=== PATIENT | female | born 1950 | race Caucasian/White ===

== ENCOUNTER → 2021-03-05 14:13 | Outpatient (CLI) | payer MEDICARE, SELFPAY | PROVIDERS: Visit Provider Family Medicine | DX: N39.0 Urinary tract infection, site not specified (principal) | CPT/HCPCS: 87086 ==

== ENCOUNTER 2021-03-17 08:39 | Outpatient (RCR) | payer MEDICARE, SELFPAY ==
--- NOTE | 2021-03-17 09:23 | HMH.PTOPEV ---
PT Outpatient Evaluation Rehab PT Outpatient Evaluation Start: 03/17/21 09:06 Freq: Status: Active Protocol: Document 03/17/21 09:07 SHANNAN (Rec: 03/17/21 09:23 SHANNAN [id number]) Electronically Signed By Ramiro Morales, PT 03/17/21 09:07 Outpatient Therapy Subjective History Subjective History Pt presents s/p CVA ~3 years ago, left sided weakness. Pt reports major complaint is left knee 'giving out', genralized LLE weakness, balance issues, and decreased endurance. Pt reports no pain related problems this am, but expresses concern with left hand tightness-will add OT to interdisciplinary POC to address LUE issues. Chief Complaint Stiff,Gives out/Unstable, Weakness Symptoms Relieved By Rest/Positioning Symptoms Aggravated By Standing,Physical Activity, Walking Prior Functional Limitations Housework,Standing,Walking, Stairs,Balance Current Functional Limitations Housework,Standing,Walking, Stairs,Balance Hip/Knee Eval MMT left Hip Flexion Strength Grade 4- Good- Hip Abduction Strength Grade 4- Good- Hip Adduction Strength Grade 4- Good- Hip Extension Strength Grade 4- Good- Hip External Rotation Strength Grade 3+ Fair+ Hip Internal Rotation Strength Grade 3+ Fair+ Knee Extension Strength Grade 4- Good- Knee Flexion Strength Grade 3+ Fair+ Ankle/Foot Eval MMT Ankle Dorsiflexion Strength Grade 4 Good Balance Eval Gait/Posture Asssessment General Gait Observation Ataxic Gait Assistive Devices Straight Cane Hip Observation in Gait Swing Circumducted,Externally Rotated Hip Observation in Gait Stance Externally Rotated Ankle/Foot Observation in Gait Swing Decreased Foot Clearance Ankle/Foot Observation in Gait Stance Forefoot Abducted Hip Posture Standing Position (L) Externally Rotated,(L) Abducted Body Alignment Posture Leaning Timed Up and Go Test 3. Is the Timed Up and Go Test result < yes 12 seconds? Tinetti Sitting Balance Sitting Balance Steady, safe Arising from Chair Ability to Arise Able, uses arms to help Attempts to Arise Arises on 1st attempt Standing Balance Immediate Standing Balance Steady with support Standing Balance Unsteady Nudged Response Begins to fall Standing wit
== END 2021-03-17 08:45 | disposition home or self-care (01) ==
LOC: PT 08:39
PROVIDERS: PCP Family Medicine; Visit Provider Family Medicine
DX: I63.9 Cerebral infarction, unspecified (principal); R29.898 Other symptoms and signs involving the musculoskeletal system
CPT/HCPCS: 97163

== ENCOUNTER → 2021-04-27 16:00 | Outpatient (CLI) | payer MEDICARE, SELFPAY ==
[2021-04-27 14:36] LABS: Alanine Aminotransferase 21 U/L (12-78); Albumin Level 4.8 g/dl (3.5-5.0); Albumin/Globulin Ratio 1.8 (1.1-1.8); Alkaline Phosphatase 89 U/L (38-126); Anion Gap 15.3 mEq/L (5-15); Aspartate Amino Transferase 23 U/L (14-36); Bilirubin,Total 0.8 mg/dl (0.2-1.3); Blood Urea Nitrogen 14 mg/dl (7-17); Calcium 9.7 mg/dl (8.4-10.2); Carbon Dioxide 25 mmol/L (22.0-30.0); Chloride 102 mmol/L (98-107); Chol/HDL Ratio 3.2 (1-3.5); Cholesterol 166 mg/dl (140-200); Estimated Glomerular Filt Rate 123 ml/min (>60); GFR (African American) 148 ML/MIN (>60); Globulin 2.7 g/dL (1.3-3.2); Glucose 242 mg/dl (74-100); HDL Cholesterol 52 mg/dl (40-60); Potassium 4.3 mmoL/L (3.5-5.1); Sodium 138 mmol/L (136-145); Total Protein,Serum 7.5 g/dl (6.3-8.2); Triglycerides 125 mg/dl (30-150); VLDL Cholesterol 25 mg/dL (0-40)
[2021-04-27 14:47] LABS: Direct LDL Cholesterol 94.47 mg/dL (100-129)
[2021-04-27 18:33] LABS: Hemoglobin A1C 10.4 % (4.0-6.0)
== END ==
PROVIDERS: Visit Provider Family Medicine
DX: I10 Essential (primary) hypertension (principal); E11.9 Type 2 diabetes mellitus without complications; Z79.84 Long term (current) use of oral hypoglycemic drugs
CPT/HCPCS: 80053; 80061; 83036

== ENCOUNTER → 2021-07-27 11:00 | Outpatient (CLI) | payer MEDICARE, SELFPAY ==
[2021-07-27 17:54] LABS: Hemoglobin A1C 7.4 % (4.0-6.0)
== END ==
PROVIDERS: PCP Family Medicine; Visit Provider Family Medicine
DX: E11.9 Type 2 diabetes mellitus without complications (principal); Z79.4 Long term (current) use of insulin
CPT/HCPCS: 83036

== ENCOUNTER → 2021-10-16 15:16 | Outpatient (CLI) | payer MEDICARE, SELFPAY ==
[2021-10-16 13:58] LABS: Hemoglobin A1C 6.7 % (4.0-6.0)
== END ==
PROVIDERS: PCP Family Medicine; Visit Provider Family Medicine
DX: E11.9 Type 2 diabetes mellitus without complications (principal); Z79.4 Long term (current) use of insulin
CPT/HCPCS: 83036

== ENCOUNTER 2022-05-26 13:00 | Outpatient (RCR) | payer MEDICARE, SELFPAY ==
--- NOTE | 2022-04-20 16:34 | HMH.OTOPEV ---
OT Inpatient Evaluation Rehab OT Outpatient Eval Start: 04/20/22 16:22 Freq: Status: Active Protocol: Document 04/20/22 16:22 RITABRENNA (Rec: 04/20/22 16:34 RITABRENNA [id number]) E-signed By Hanny Quesada, OT Outpatient Therapy Subjective History Subjective History 71 year old female referred to skilled OP OT services for left hand weakness and dupuytren contracture. Patient verablize having a CVA to the L hand ~3-4 years ago. L hand contracture ~1 month ago started showing s/s. Patient stated to have difficulty with tying shoes, grooming and washing dishes due to L hand contracture. AROM is WFL. Patient is able to actively close fist, however during extension of the digits, patient will have a catch in the digits then able to continue to extend digits. No pain noted. Numbness/tingling to the L UE since CVA. Patient does not have a resting hand splint, however would benefit from one. OT will look into patient to recieve a resting hand splint at night to prevent contracture from worsening. STGs: Patient to be able to tolerate appropriate ortho splint at night up to 3 hours without s/ s of redness or skin irritation in order to prevent contractures from worsening. LTGs: Patient to be able to tolerate appropriate ortho splint at night up to 5 hours without s/ s of redness or skin irritation in order to prevent contractures from worsening. Chief Complaint Weakness,Decreased Manager Msw Strength Symptom Type Numbness,Tingling Symptoms Relieved By Nothing Symptoms Aggravated By Physical Activity Prior Functional Limitations None Current Functional L
--- NOTE | 2022-05-18 16:24 | HMH.RHREAS ---
Rehab Reassessment Rehab OP Re-assessment Start: 05/18/22 16:14 Freq: Status: Active Protocol: Document 05/18/22 16:16 ROMÁN (Rec: 05/18/22 16:24 RITABRENNA [id number]) E-signed By Hanny Quesada OT Rehab Re-assessment Subjective Subjective When will my brace be in? Objective Objective Notes 71 year old female referred to skilled OP OT services for left hand weakness and dupuytren contracture. Patient verablize having a CVA to the L hand ~3-4 years ago. L hand contracture ~2 months ago started showing s/s. Patient stated to have difficulty with tying shoes, grooming and washing dishes due to L hand contracture. AROM is WFL. Patient is able to actively close fist, however during extension of the digits, patient will have a catch in the digits then able to continue to extend digits. No pain noted. Numbness/tingling to the L UE since CVA. Patient does not have a resting hand splint, however would benefit from one. OT has been in contact with the company that provides prefab resting hand splints for lobsterman settings . Patient was measured for left small resting hand splint and signed papers this date. Waiting for resting hand splint to arrive to facility. Assessment Progress Assessment Progressing as Expected Assessment Notes Patient has participated in skilled OP OT services of L UE hand of PROM, AAROM, AROM, electronic page makeup system operator strengthening and a variety of modalites to improve strengthening of UE. OT placed order for patient to recieve a resting hand splint ; small. Plan to arrive to facility in the next week or so. L electronic page makeup system operator strength: 35# R gr
== END 2022-05-26 13:05 | disposition home or self-care (01) ==
LOC: OT 13:00
PROVIDERS: PCP Family Medicine; Visit Provider Family Medicine
DX: I63.9 Cerebral infarction, unspecified (principal); R29.898 Other symptoms and signs involving the musculoskeletal system; M72.0 Palmar fascial fibromatosis [Dupuytren]; M25.642 Stiffness of left hand, not elsewhere classified; R53.1 Weakness
CPT/HCPCS: 97010; 97014; 97110; 97140; 97164; 97165; 97763; G0283

== ENCOUNTER → 2022-06-17 13:13 | Outpatient (CLI) | payer MEDICARE, SELFPAY ==
[2022-06-17 13:29] LABS: Basophils # 0.1 K/mm3 (0-0.2); Basophils % 0.7 % (0.1-2.0); Eosinophils # 0.1 K/mm3 (0.0-0.4); Eosinophils % 1.1 % (0.1-12.0); Hematocrit 46.9 % (37.0-47.0); Hemoglobin 14.7 g/dL (12.2-16.2); Lymphocytes # 2.8 K/mm3 (0.7-4.5); Mean Corpuscular HGB Conc 31.4 g/dL (31.8-35.4); Mean Corpuscular Hemoglobin 28.3 pg (27.0-31.2); Mean Corpuscular Volume 90.1 fl (81-99); Mean Platelet Volume 7.7 fl (7.4-10.4); Monocytes # 0.5 K/mm3 (0.1-1.0); Monocytes % 5.8 % (1.7-9.3); Neutrophils # 4.6 K/mm3 (1.8-7.8); Neutrophils % 57.4 % (37.0-80.0); Platelet Count 335 K/mm3 (142-424); Red Blood Count 5.21 M/mm3 (4.20-5.40); Red Cell Distribution Width 13.8 % (11.5-17.5); White Blood Count 7.9 K/mm3 (4.8-10.8)
[2022-06-17 13:40] LABS: Chloride 104 mmol/L (98-107); Potassium 4.5 mmoL/L (3.5-5.1); Sodium 137 mmol/L (136-145)
[2022-06-17 13:43] LABS: Alanine Aminotransferase 20 U/L (12-78); Albumin Level 4.8 g/dl (3.5-5.0); Albumin/Globulin Ratio 1.7 (1.1-1.8); Alkaline Phosphatase 99 U/L (38-126); Anion Gap 13.5 mEq/L (5-15); Aspartate Amino Transferase 28 U/L (14-36); Blood Urea Nitrogen 12 mg/dl (7-17); Carbon Dioxide 24 mmol/L (22.0-30.0); Cholesterol 148 mg/dl (140-200); Estimated Glomerular Filt Rate 99 ml/min (>60); GFR (African American) 120 ML/MIN (>60); Globulin 2.8 g/dL (1.3-3.2); Total Protein,Serum 7.6 g/dl (6.3-8.2); Triglycerides 262 mg/dl (30-150); VLDL Cholesterol 52 mg/dL (0-40)
[2022-06-17 13:44] LABS: Calcium 9.6 mg/dl (8.4-10.2); Chol/HDL Ratio 3.1 (1-3.5); Glucose 151 mg/dl (74-100); HDL Cholesterol 47 mg/dl (40-60)
[2022-06-17 13:55] LABS: Direct LDL Cholesterol 69.48 mg/dL (100-129)
[2022-06-17 14:15] LABS: Thyroid Stimulating Hormone 1.63 uIU/mL (0.465-4.68)
[2022-06-17 20:02] LABS: Hemoglobin A1C 11.2 % (4.0-6.0)
== END ==
PROVIDERS: PCP Family Medicine; Visit Provider Family Medicine
DX: E11.9 Type 2 diabetes mellitus without complications (principal); Z79.4 Long term (current) use of insulin; Z79.899 Other long term (current) drug therapy
CPT/HCPCS: 80053; 80061; 83036; 84443; 85025

== ENCOUNTER 2022-06-27 10:39 | Emergency (ER) | payer MEDICARE, SELFPAY ==
[2022-06-27] VITALS (7 sets, daily range): BP systolic 140–156; BP diastolic 58–78; PULSE 70–105; RESP 16–17; TEMP 36.7–36.8; O2SAT 96–99; BMI 27.1
[2022-06-27 10:56] LABS: Microscopic, Urine URINE MICROSCOPIC (MICROSCOPIC)
[2022-06-27 11:00] LABS: Appearance,Urine CLEAR (Clear); Bilirubin,Urine Negative (Negative); Blood, Urine 2+ (Negative); Color,Urine YELLOW (Yellow); Glucose,Urine (UA) Negative (Negative); Ketones,Urine Negative (Negative); Leukocyte Esterase,Urine 1+ (Negative); Nitrate,Urine Negative (Negative); Protein,Urine 2+ (Negative); Specific Gravity, Urine 1.025 (1.005-1.030)
--- NOTE | 2022-06-27 11:04 | PC.NURSE ---
Kandi.Quinteros rounded on patient
--- NOTE | 2022-06-27 11:20 | CT_ITS ---
PROCEDURE INFORMATION: Exam: CT Abdomen And Pelvis With Contrast Exam date and time: 06/27/2022 12:01 PM Age: 71 years old Clinical indication: Abdominal pain; Tenderness; Right lower quadrant (rlq); Additional info: Rlq pain; Concern for nephrolithiasis TECHNIQUE: Imaging protocol: Computed tomography of the abdomen and pelvis with contrast. Radiation optimization: All CT scans at this facility use at least one of these dose optimization techniques: automated exposure control; mA and/or kV adjustment per patient size (includes targeted exams where dose is matched to clinical indication); or iterative reconstruction. Contrast material: ISOVUE; Contrast volume: 75 ml; Contrast route: IV; REPORTING DATA: Count of CT and Cardiac NM exams in prior 12 months: This patient has received 0 known CTs and 0 known cardiac nuclear medicine studies in the 12 months prior to the current study. COMPARISON: No relevant prior studies available. FINDINGS: Lungs: Lung bases are unremarkable. Liver: No focal hepatic lesions. Gallbladder and bile ducts: There has been a cholecystectomy. No biliary ductal dilation. Pancreas: No peripancreatic fluid stranding. No main pancreatic ductal dilation. Spleen: Multiple splenic granulomas. No splenomegaly. Adrenal glands: The adrenal glands are normal. Kidneys and ureters: Nephrograms are symmetric. No evidence of nephrolithiasis. No solid lesions. There is urothelial hyperenhancement along the right collecting system. No wendy hydroureteronephrosis on either side. Stomach and bowel: No bowel wall thickening or distention. Pancolonic diverticulosis noted without acute inflammatory change. Appendix: A normal appendix is not well visualized. However, no evidence of inflammatory changes in the right lower quadrant to suggest acute appendicitis. Intraperitoneal space: There is no evidence of free intraperitoneal or pelvic fluid. Vasculature: The aorta demonstrates moderate atherosclerotic calcification. Scattered pelvic phleboliths noted Lymph nodes: No evidence of retroperitoneal or mesenteric lymphadenopathy. Urinary bladder: Urinary bladder is unremarkable. Reproductive: Status post hysterectomy. Bones/joints: No acute osseous abnormality. Multilevel degenerative changes of the included spine. Soft tissues: Unremarkable. IMPRESSION: There is urothelial hyperenhancement along the right collecting system. No wendy hydroureteronephrosis on either side. Findings can be attributed to ascending urinary tract infection (pyelitis) versus recent calculus passage
[2022-06-27 11:29] LABS: Basophils # 0.1 K/mm3 (0-0.2); Basophils % 0.6 % (0.1-2.0); Chloride 102 mmol/L (98-107); Eosinophils # 0.2 K/mm3 (0.0-0.4); Eosinophils % 1.7 % (0.1-12.0); Hematocrit 46.3 % (37.0-47.0); Lymphocytes % 33.9 % (10-50); Mean Corpuscular HGB Conc 32.5 g/dL (31.8-35.4); Mean Corpuscular Hemoglobin 28.8 pg (27.0-31.2); Mean Corpuscular Volume 88.9 fl (81-99); Mean Platelet Volume 7.5 fl (7.4-10.4); Monocytes # 0.7 K/mm3 (0.1-1.0); Monocytes % 6.1 % (1.7-9.3); Neutrophils # 6.9 K/mm3 (1.8-7.8); Neutrophils % 57.8 % (37.0-80.0); Platelet Count 371 K/mm3 (142-424); Potassium 3.9 mmoL/L (3.5-5.1); Red Blood Count 5.21 M/mm3 (4.20-5.40); Red Cell Distribution Width 13.5 % (11.5-17.5); Sodium 139 mmol/L (136-145); White Blood Count 11.9 K/mm3 (4.8-10.8)
[2022-06-27 11:32] LABS: Bacteria,Urine 2+ /lpf
[2022-06-27 11:32] LABS: Alanine Aminotransferase 21 U/L (12-78); Alkaline Phosphatase 102 U/L (38-126); Anion Gap 19.9 mEq/L (5-15); Aspartate Amino Transferase 27 U/L (14-36); Bilirubin,Total 0.9 mg/dl (0.2-1.3); Blood Urea Nitrogen 15 mg/dl (7-17); Calcium 9.1 mg/dl (8.4-10.2); Carbon Dioxide 21 mmol/L (22.0-30.0); Creatinine Clearance Estimated 55 mL/min (50-200); Estimated Glomerular Filt Rate 99 ml/min (>60); GFR (African American) 120 ML/MIN (>60); Glucose 267 mg/dl (74-100); Lipase 166 U/L (23-300)
--- NOTE | 2022-06-27 11:32 | PC.NURSE ---
Kandi.Quinteros rounded on patient
[2022-06-27 11:33] LABS: Albumin Level 4.5 g/dl (3.5-5.0); Albumin/Globulin Ratio 1.3 (1.1-1.8); Globulin 3.6 g/dL (1.3-3.2); Total Protein,Serum 8.1 g/dl (6.3-8.2)
--- NOTE | 2022-06-27 11:33 | PC.NURSE ---
cristian rounding on pt
[2022-06-27 11:38] LABS: C-Reactive Protein 32.7 mg/L (0-4)
--- NOTE | 2022-06-27 12:24 | PC.NURSE ---
rounded on pt no complaints @ this time , @ bs
[2022-06-27 12:31] LABS: Lactic Acid 2.1 mmol/L (0.7-2.1)
--- NOTE | 2022-06-27 13:42 | HMH.EDGENADL ---
Discharge Plan Disposition Patient Disposition: Home, Self-Care Prescriptions Prescriptions: New cefdinir 300 mg capsule 300 mg PO BID 7 Days Qty: 14 0RF No Action amlodipine-benazepril [Lotrel] 10-40 mg capsule 1 cap PO DAILY Qty: 90 3RF aspirin 81 mg tablet,delayed release (DR/EC) 81 mg PO DAILY Qty: 100 3RF atorvastatin 40 mg tablet 40 mg PO DAILY Qty: 90 3RF metformin 1,000 mg tablet 1,000 mg PO DAILY Qty: 90 3RF Antivert 50 mg tablet 50 mg PO BID PRN (Reason: dizziness) Qty: 60 3RF insulin glargine [Lantus Solostar U-100 Insulin] 100 unit/mL (3 mL) insulin pen 30 unit SQ HS Qty: 15 10RF Rx Instructions: please include pen needles #100 [id number] Referrals Follow up/Referrals: Robert Trujillo MD [Primary Care Provider] - See instructions Clinical Impressions Clinical Impression: Pyelonephritis Instructions Patient Instructions: DI for Kidney Infection Discharge ED Provider: Ramiro Frost General Adult HPI General Chief complaint: Abdominal Pain Stated complaint: Lower RT side abd pain Time Seen by Provider: 06/27/22 10:45 Mode of Arrival: Ambulatory Source of Information: Patient Limitations: No Limitations Description of Symptoms (Recalled from ER Triage Doc. by RN): c/o lower right abdomen pain that started yesterday, states the pain comes and goes with increased pain with standing. hx of appendectomy. Denies any n/v/d. STates that she had a regular bm for her and was soft. History of Present Illness HPI narrative: Patient is a 71-year-old female who presents with right-sided abdominal pain. She says that it started yesterday. She says that the pain has been seeming to come and go but is gotten progressively worse. She has had a history of appendectomy in the past. She denies any nausea, vomiting, diarrhea. She says that she continues to have bowel movements. She does not noted any hematuria or dysuria. Denies any back pain. No history of nephrolithiasis. Related Data Previous Rx's Medication Instructions Recorded meclizine 50 mg tablet (Antivert) 50 mg PO BID PRN dizziness #60 tabs 07/27/21 amlodipine 10 mg-benazepril 40 mg 1 cap PO DAILY #90 caps 01/31/23 capsule (Lotrel) aspirin 81 mg tablet,delayed 81 mg PO DAILY #100 tabs 04/13/22 release atorvastatin 40 mg tablet 40 mg PO DAILY #90 tabs 04/13/22 metformin 1,000 mg tablet 1,000 mg PO DAILY #90 tabs 04/13/22 insulin glargine 100 unit/mL (3 30 unit (0.3 mL) SQ HS #15 mL 06/21/22 mL) subcutaneous pen (Lantus Solostar U-100 Insulin) cefdinir 300 mg capsule 300 mg PO BID 7 days #14 caps 06/27/22 Allergies Allergy/AdvReac Type Severity Reaction Status Date / Time codeine AdvReac Verified 06/17/22 10:38 [facility] Disclaimer: The information contained in this section may have been updated after the patient was seen, as this information can be updated by other users. Social History Smoking Status: Never smoker alcohol intake: never current occupational status: retired Travel in the last 8 weeks: None household members: spouse and significant other housing: house ROS Obtained: Yes All systems reviewed & no additional complaints except as documented Physical Exam General General appearance: alert and in no apparent distress Head Head exam: atraumatic, normocephalic and normal inspection Eye Eye exam: Present normal appearance and PERRL ENT ENT exam: Present normal exam, mucous membranes moist and normal external ear exam Neck Neck exam: Present normal inspection and trachea midline Chest Chest inspection: Present normal inspection and symmetric chest wall rise Respiratory Respiratory exam: Present normal lung sounds bilaterally; Absent respiratory distress Cardiovascular Cardiovascular exam: Present regular rate and normal rhythm Abdominal Exam Abdominal exam: Present soft and tenderness; Absent distentio
[2022-06-27 16:26] LABS: Reflex Lactic Add Lactic Reflex
== END 2022-06-27 13:32 | disposition home or self-care (01) ==
PROVIDERS: Emergency Provider Student in an Organized Health Care Education/Training Program; PCP Family Medicine
DX: N12 Tubulo-interstitial nephritis, not specified as acute or chronic (principal)
CPT/HCPCS: 36415; 74177; 80053; 81001; 83605; 83690; 85025; 86140; 87086; 87088; 87186; 96360; 96372; 96374; 96375; 99284; 99285; J0696; J2405; Q9967

== ENCOUNTER 2022-11-05 11:43 | Emergency (ER) | payer MEDICARE, SELFPAY ==
[2022-11-05 11:43] VITALS: BP 127/79; PULSE 111; RESP 20; TEMP 36.8; O2SAT 98; BMI 23.1
--- NOTE | 2022-11-05 12:08 | EXP.UTC ---
Discharge Plan Disposition Patient Disposition: Home, Self-Care Condition: Good Prescriptions Prescriptions: New azithromycin [Zithromax] 250 mg tablet 250 mg PO UD DOSE PK Qty: 6 0RF Rx Instructions: Take two (2) tablets today, then one (1) tablet days #2 thru #5 benzonatate [benzonatate] 100 mg capsule 100 mg PO TIDP PRN (Reason: Cough) Qty: 30 0RF methylprednisolone 4 mg Tablets,Dose Pack 4 mg PO DIRECTED Qty: 21 0RF No Action Antivert 50 mg tablet 50 mg PO BID PRN (Reason: dizziness) Qty: 60 3RF amlodipine-benazepril [Lotrel] 10-40 mg capsule 1 cap PO DAILY Qty: 90 3RF aspirin 81 mg tablet,delayed release (DR/EC) 81 mg PO DAILY Qty: 100 3RF atorvastatin 40 mg tablet 40 mg PO DAILY Qty: 90 3RF insulin glargine [Lantus Solostar U-100 Insulin] 100 unit/mL (3 mL) insulin pen 30 unit SQ HS Qty: 15 10RF Rx Instructions: please include pen needles #100 [id number] metformin 1,000 mg tablet 1,000 mg PO DAILY Qty: 90 3RF Referrals Follow up/Referrals: Robert Trujillo MD [Primary Care Provider] - See instructions Activity Restrictions/Add. Instructions Additional Instructions/Restrictions: Drink plenty of fluids. Take tylenol or ibuprofen for pain or fever. Take the medications as directed. Follow up with your regular doctor. GO TO THE ER FOR ANY WORSENING SYMPTOMS Clinical Impressions Clinical Impression: Acute bronchitis, Acute viral syndrome Instructions Patient Instructions: Acute Bronchitis, DI for Acute Bronchitis Discharge ED Provider: Alex Blair [facility] HPI General Stated complaint: lightheaded, SOA Mode of Arrival: Ambulatory Source of Information: Patient Limitations: No Limitations Time Seen by Provider: 11/05/22 12:08 HEENT Symptoms (Recalled from RN notes): Yes Resp Symptoms (Recalled from RN notes): No Skin Symptoms (Recalled from RN notes): No MS Symptoms (Recalled from RN notes): No Functional Status (Recalled from RN notes): wnl History of Present Illness Provider Complaint: Patient reports cough, congestion, shortness of breath, fatigue x 2 weeks. Patient requesting a COVID test. Related Data Previous Rx's Medication Instructions Recorded meclizine 50 mg tablet (Antivert) 50 mg PO BID PRN dizziness #60 tabs 07/27/21 amlodipine 10 mg-benazepril 40 mg 1 cap PO DAILY #90 caps 08/13/22 capsule (Lotrel) aspirin 81 mg tablet,delayed 81 mg PO DAILY #100 tabs 08/13/22 release atorvastatin 40 mg tablet 40 mg PO DAILY #90 tabs 08/13/22 insulin glargine 100 unit/mL (3 30 unit (0.3 mL) SQ HS #15 mL 08/13/22 mL) subcutaneous pen (Lantus Solostar U-100 Insulin) metformin 1,000 mg tablet 1,000 mg PO DAILY #90 tabs 08/13/22 azithromycin 250 mg tablet 250 mg PO UD DOSE PK #6 tabs 11/05/22 (Zithromax) benzonatate 100 mg capsule 100 mg PO TIDP PRN Cough #30 caps 11/05/22 methylprednisolone 4 mg tablets in 4 mg PO DIRECTED #21 tabs 11/05/22 a dose pack Allergies Allergy/AdvReac Type Severity Reaction Status Date / Time codeine AdvReac Verified 08/13/22 12:08 Worker's Comp Is this a Worker's Comp case?: No [facility] Disclaimer: The information contained in this section may have been updated after the patient was seen, as this information can be updated by other users. Social History Smoking Status: Never smoker alcohol intake: never current occupational status: retired Travel in the last 8 weeks: None household members: spouse and significant other housing: house ROS Obtained: Yes All systems reviewed & no additional complaints except as documented Constitutional Constitutional: Reports poor appetite Eyes Eyes: Reports system reviewed and no additional complaints, except as documented ENT Ears, Nose, Mouth, and Throat: Reports as per HPI Cardiovascular Cardiovascular: Reports system reviewed and no additional complaints, except as
[2022-11-05 12:39] VITALS: BP 127/79; PULSE 111; RESP 20; TEMP 36.8; O2SAT 98
== END 2022-11-05 12:40 | disposition home or self-care (01) ==
PROVIDERS: Emergency Provider Nurse Practitioner Family; PCP Family Medicine
DX: J20.9 Acute bronchitis, unspecified (principal); R06.02 Shortness of breath; R53.83 Other fatigue; B34.9 Viral infection, unspecified
CPT/HCPCS: 99204; 99212; G0463

== ENCOUNTER 2023-02-02 08:56 | Emergency (ER) | payer MEDICARE, SELFPAY ==
[2023-02-02] VITALS (7 sets, daily range): BP systolic 132–155; BP diastolic 74–94; PULSE 96–121; RESP 18; TEMP 36.5–36.7; O2SAT 95–98; BMI 24.3
[2023-02-02 09:17] LABS: Influenza A, PCR Not Detected (NotDetected); Influenza B, PCR Not Detected (NotDetected)
--- NOTE | 2023-02-02 09:21 | HMH.EDGENADL ---
Discharge Plan Disposition Patient Disposition: Home, Self-Care Condition: Good Prescriptions Prescriptions: New qgyheexzzavxqse-nxwebjedh-IA [Bromfed DM] 2-30-10 mg/5 mL syrup 5 ml PO Q6H PRN (Reason: cold symptoms) Qty: 118 0RF No Action Antivert 50 mg tablet 50 mg PO BID PRN (Reason: dizziness) Qty: 60 3RF amlodipine-benazepril [Lotrel] 10-40 mg capsule 1 cap PO DAILY Qty: 90 3RF aspirin 81 mg tablet,delayed release (DR/EC) 81 mg PO DAILY Qty: 100 3RF atorvastatin 40 mg tablet 40 mg PO DAILY Qty: 90 3RF insulin glargine [Lantus Solostar U-100 Insulin] 100 unit/mL (3 mL) insulin pen 30 unit SQ HS Qty: 15 10RF Rx Instructions: please include pen needles #100 [id number] metformin 1,000 mg tablet 1,000 mg PO DAILY Qty: 90 3RF azithromycin [Zithromax] 250 mg tablet 250 mg PO UD DOSE PK Qty: 6 0RF Rx Instructions: Take two (2) tablets today, then one (1) tablet days #2 thru #5 benzonatate [benzonatate] 100 mg capsule 100 mg PO TIDP PRN (Reason: Cough) Qty: 30 0RF methylprednisolone 4 mg Tablets,Dose Pack 4 mg PO DIRECTED Qty: 21 0RF Referrals Follow up/Referrals: Robert Trujillo MD [Primary Care Provider] - See instructions Activity Restrictions/Add. Instructions Additional Instructions/Restrictions: You were evaluated in the emergency department today and diagnosed with COVID-19. Please take Tylenol and ibuprofen at home every 4-6 hours as needed for pain and fever. Hydrate is much as possible. Follow-up with your primary care provider over the next week for reassessment. Return to the emergency department for new or worsening symptoms. Clinical Impressions Clinical Impression: COVID-19 Instructions Patient Instructions: DI for COVID-19 (Suspected or Confirmed ) Discharge ED Provider: Carolin Trotter General Adult HPI General Chief complaint: Upper Respiratory Infection Stated complaint: COUGHING, DIZZY Time Seen by Provider: 02/02/23 09:12 Mode of Arrival: Ambulatory Source of Information: Patient Limitations: No Limitations Description of Symptoms (Recalled from ER Triage Doc. by RN): PT REPORTS BODYACHES AND COUGH THAT STARTED YESTERDAY. STATES S.O HAS COVID. PT DENIES FEVER History of Present Illness HPI narrative: This patient is a 72-year-old female with a history of hypertension, hyperlipidemia, diabetes, CVA presenting to the emergency department for evaluation with concern for cough and bodyaches that started yesterday. She states that she is just not feeling well. Patient denies any fever, chest pain, shortness of breath, abdominal pain, nausea, vomiting, changes bowel movements, or other concerns. She took an ktxz-dwo-hkmnegf cough medication at home without good improvement. She notes that her boyfriend at home has COVID. No Tylenol or Motrin given prior to arrival. Related Data Previous Rx's Medication Instructions Recorded meclizine 50 mg tablet (Antivert) 50 mg PO BID PRN dizziness #60 tabs 07/27/21 amlodipine 10 mg-benazepril 40 mg 1 cap PO DAILY #90 caps 08/13/22 capsule (Lotrel) aspirin 81 mg tablet,delayed 81 mg PO DAILY #100 tabs 08/13/22 release atorvastatin 40 mg tablet 40 mg PO DAILY #90 tabs 08/13/22 insulin glargine 100 unit/mL (3 30 unit (0.3 mL) SQ HS #15 mL 08/13/22 mL) subcutaneous pen (Lantus Solostar U-100 Insulin) metformin 1,000 mg tablet 1,000 mg PO DAILY #90 tabs 08/13/22 azithromycin 250 mg tablet 250 mg PO UD DOSE PK #6 tabs 11/05/22 (Zithromax) benzonatate 100 mg capsule 100 mg PO TIDP PRN Cough #30 caps 11/05/22 methylprednisolone 4 mg tablets in 4 mg PO DIRECTED #21 tabs 11/05/22 a dose pack cliujkqnrfbiamj-ralpdcmsztzpyel-WJ 5 ml PO Q6H PRN cold symptoms #118 02/02/23 2 mg-30 mg-10 mg/5 mL oral syrup mL (Bromfed DM) Allergies Allergy/AdvReac Type Severity Reaction Status Date / Time codeine AdvReac Verified 11/10/22 10:26 [facility] Disclaimer: The information cont
[2023-02-02 10:04] LABS: Coronavirus 19, PCR Detected (NotDetected)
== END 2023-02-02 10:45 | disposition home or self-care (01) ==
PROVIDERS: Emergency Provider Emergency Medicine; PCP Family Medicine
DX: U07.1 COVID-19 (principal); R05.9 Cough, unspecified; M79.18 Myalgia, other site; R42 Dizziness and giddiness; E11.9 Type 2 diabetes mellitus without complications; E78.5 Hyperlipidemia, unspecified; I10 Essential (primary) hypertension; Z79.4 Long term (current) use of insulin; Z79.84 Long term (current) use of oral hypoglycemic drugs
CPT/HCPCS: 87636; 96372; 99283

== ENCOUNTER → 2023-02-11 08:25 | Outpatient (CLI) | payer MEDICARE, SELFPAY ==
[2023-02-11 18:26] LABS: Hemoglobin A1C 6.8 % (4.0-6.0)
[2023-02-11 18:27] LABS: Chloride 100 mmol/L (98-107); Potassium 4.4 mmoL/L (3.5-5.1); Sodium 135 mmol/L (136-145)
[2023-02-11 18:30] LABS: Alanine Aminotransferase 24 U/L (12-78); Albumin Level 4.8 g/dl (3.5-5.0); Albumin/Globulin Ratio 1.5 (1.1-1.8); Alkaline Phosphatase 118 U/L (38-126); Anion Gap 15.4 mEq/L (5-15); Aspartate Amino Transferase 27 U/L (14-36); Bilirubin,Total 0.8 mg/dl (0.2-1.3); Blood Urea Nitrogen 17 mg/dl (7-17); Carbon Dioxide 24 mmol/L (22.0-30.0); Estimated Glomerular Filt Rate 99 ml/min (>60); GFR (African American) 120 ML/MIN (>60); Globulin 3.2 g/dL (1.3-3.2)
[2023-02-11 18:31] LABS: Calcium 10.4 mg/dl (8.4-10.2); Glucose 227 mg/dl (74-100)
== END ==
PROVIDERS: PCP Family Medicine; Visit Provider Family Medicine
DX: R69 Illness, unspecified (principal); E11.9 Type 2 diabetes mellitus without complications; Z79.4 Long term (current) use of insulin
CPT/HCPCS: 80053; 83036

== ENCOUNTER 2023-06-06 10:30 | Outpatient (CLI) | payer MEDICARE, SELFPAY ==
--- NOTE | 2023-06-06 10:31 | CA_ITS ---
APPROVED REPORT EXAM: Comprehensive 2D, Doppler, and color-flow Echocardiogram Rug Shampooer: Sabrina Harris CRT Ht: 5 ft 4 in Wt: 137lbs BSA: 1.67 BP: 148/72 mmHg Indications: Chest Pain, CVA/TIA, Diabetes, Fatigue, Hyperlipidemia, Cardiomyopathy, Hypertension/HDD 2D Dimensions LA Volume 27.30 mL LA Volume Index 16.00 mL/m2 (M/F) 16-34 M-Mode Dimensions RVDd 2.92 cm (0.9-2.6) LA Diam 3.66 cm (1.9-4.0) LVDd 3.60 cm (3.5-5.7) LVDs 2.39 cm (3.5-5.7) IVSd 1.42 cm (0.6-1.1) PWd 1.25 cm (0.6-1.1) EF (Teich) 63.20% FS 33.60% EDV (Teich) 54.40 mL TAPSE 1.84 (<1.7) ESV (Teich) 20.00 mL LV Diastology E Decel Time 150 (160-240 msec) E/A Ratio 0.68 MED A' 5.80 cm/s LAT A' 11.70 cm/s Aortic Valve AO Peak GR. 7.60 mmHg Mitral Valve MV E Max Paolo. 60.0 (40-130 cm/s) MV A Velocity 88.0 (40-130 cm/s) E/A Ratio 0.68 MV PHT 44.0 ms Pulmonary Valve PV Peak Velocity 67.0 (50-150 cm/s) Tricuspid Valve TR P. Velocity 200.00 cm/s RAP Estimate 10.00 mmHg RVSP 25.90 mmHg Left Ventricle The left ventricle is normal size. The left ventricular systolic function is normal. The left ventricular ejection fraction is within the normal range. There is increased LV wall thickness. There is normal LV segmental wall motion. Transmitral Doppler flow pattern suggests impaired LV relaxation. LVEF is 60%. Right Ventricle The right ventricle is normal size. The right ventricular systolic function is normal. Atria The left atrium size is normal. The right atrium size is normal. There is no Doppler evidence of interatrial shunt. Aortic Valve The aortic valve is mildly thickened. There is no aortic valvular stenosis. No aortic regurgitation. Mitral Valve The mitral valve leaflets are mildly thickened. No evidence of mitral valve stenosis. There is no mitral valve regurgitation noted. Tricuspid Valve The tricuspid valve leaflets are thin and pliable. Trace tricuspid regurgitation. There is insufficient TR jet to estimate RVSP. Pulmonic Valve The pulmonary valve is normal in structure. Trace pulmonic regurgitation. Great Vessels The aortic root is normal in size. The ascending aorta is normal in size. IVC is normal in size and collapses >50% with inspiration. Pericardium There is no pericardial effusion. Other Information Study Quality: Technically Difficult Conclusion Technically difficult study due to poor accoustic windows. Normal biventricular systolic function. No significant valvular stenosis or regurgitation. Electronically signed by : Enriqueta Franco MD 06/08/2023 23:07:50
--- NOTE | 2023-06-06 10:31 | CA_ITS ---
FINAL REPORT TECHNIQUE: Color Doppler, duplex Doppler and rajput scale sonography of the bilateral neck arterial vasculature was performed. Velocities were measured in the carotid arteries. Stenosis evaluation based on the validated velocity criteria. CLINICAL HISTORY: chest pain, HTN, hyperlipidemia, DM, fatigue, hx CVA, FINDINGS: The peak systolic velocity of the right common carotid artery is 85 cm/s. The peak systolic velocity of the right internal carotid artery is 127 cm/s and end diastolic velocity 24 cm/s. A mild amount of plaque is present. The right external carotid artery is patent. The right vertebral artery is patent with antegrade flow. The peak systolic velocity of the left common carotid artery is 92 cm/s. The peak systolic velocity of the left internal carotid artery is 127 cm/s and end diastolic velocity 43 cm/s. A mild amount of plaque is present. The left external carotid artery is patent.The left vertebral artery is patent with antegrade flow. IMPRESSION: Less than 50% bilateral carotid stenoses. Bilateral patent vertebral arteries with antegrade flow. If indicated, CTA or MRA could further evaluate. Reviewed, Interpreted and Dictated by Catalina Diaz MD Transcribed by Diane Bravo Authenticated and [facility]
== END 2023-06-06 23:59 ==
PROVIDERS: PCP Family Medicine; Visit Provider Family Medicine
DX: Z86.73 Personal history of transient ischemic attack (TIA), and cerebral infarction without residual deficits (principal); R07.9 Chest pain, unspecified
CPT/HCPCS: 93306; 93880

== ENCOUNTER 2023-08-22 18:00 | Outpatient (CLI) | payer MEDICARE, SELFPAY ==
[2023-08-22 18:11] LABS: Basophils % 0.5 % (0.1-2.0); Eosinophils # 0.1 K/mm3 (0.0-0.4); Eosinophils % 1.1 % (0.1-12.0); Hematocrit 45.5 % (37.0-47.0); Hemoglobin 14.5 g/dL (12.2-16.2); Lymphocytes # 2.5 K/mm3 (0.7-4.5); Lymphocytes % 31.3 % (10-50); Mean Corpuscular HGB Conc 31.9 g/dL (31.8-35.4); Mean Corpuscular Hemoglobin 29.3 pg (27.0-31.2); Mean Corpuscular Volume 91.7 fl (81-99); Monocytes # 0.4 K/mm3 (0.1-1.0); Monocytes % 5.1 % (1.7-9.3); Neutrophils % 61.9 % (37.0-80.0); Platelet Count 361 K/mm3 (142-424); Red Blood Count 4.96 M/mm3 (4.20-5.40); Red Cell Distribution Width 14.3 % (11.5-17.5)
[2023-08-22 18:20] LABS: Chloride 107 mmol/L (98-107); Sodium 140 mmol/L (136-145)
[2023-08-22 18:21] LABS: Potassium 3.8 mmoL/L (3.5-5.1)
[2023-08-22 18:23] LABS: Alanine Aminotransferase 19 U/L (12-78); Albumin Level 4.5 g/dl (3.5-5.0); Albumin/Globulin Ratio 1.6 (1.1-1.8); Alkaline Phosphatase 111 U/L (38-126); Anion Gap 12.8 mEq/L (5-15); Aspartate Amino Transferase 24 U/L (14-36); Bilirubin,Total 0.9 mg/dl (0.2-1.3); Blood Urea Nitrogen 16 mg/dl (7-17); Carbon Dioxide 24 mmol/L (22.0-30.0); Cholesterol 159 mg/dl (140-200); Estimated Glomerular Filt Rate 122 ml/min (>60); GFR (African American) 148 ML/MIN (>60); Globulin 2.9 g/dL (1.3-3.2); Total Protein,Serum 7.4 g/dl (6.3-8.2); Triglycerides 194 mg/dl (30-150); VLDL Cholesterol 39 mg/dL (0-40)
[2023-08-22 18:24] LABS: Calcium 9.6 mg/dl (8.4-10.2); Chol/HDL Ratio 3.5 (1-3.5); Glucose 144 mg/dl (74-100); HDL Cholesterol 45 mg/dl (40-60)
[2023-08-22 18:35] LABS: Direct LDL Cholesterol 79.44 mg/dL (100-129)
[2023-08-22 19:11] LABS: Hemoglobin A1C 6.4 % (4.0-6.0)
== END 2023-08-22 23:59 | disposition home or self-care (01) ==
LOC: LAB.DROPOF 08-23 09:47
PROVIDERS: PCP Family Medicine; Visit Provider Family Medicine
DX: E11.9 Type 2 diabetes mellitus without complications (principal); I10 Essential (primary) hypertension; Z79.4 Long term (current) use of insulin; Z79.84 Long term (current) use of oral hypoglycemic drugs
CPT/HCPCS: 80053; 80061; 83036; 85025

== ENCOUNTER 2023-08-29 14:47 | Outpatient (CLI) | payer MEDICARE, SELFPAY ==
--- NOTE | 2023-08-29 14:52 | MM_ITS ---
PROCEDURE INFORMATION: Exam: MG Bilateral Screening 3D Mammography Exam date and time: 08/29/2023 2:53 PM Age: 72 years old Clinical indication: Screening examination TECHNIQUE: Imaging protocol: Bilateral Screening tomosynthesis and 2D mammography including computer-aided detection (CAD) when performed. COMPARISON: No relevant prior studies available. FINDINGS: MAMMOGRAPHY: Breast composition: There are scattered areas of fibroglandular density. Mass: 0.8 cm mass overlying the inferior aspect of the left pectoralis muscle Architectural distortion: None. Calcifications: No suspicious calcifications. Asymmetric density: None. Skin thickening: None. Axillary adenopathy: None. IMPRESSION: Patient to be recalled for spot compression views of the left breast in the exaggerated lateral make CC and MLO projections, a full 90 degree lateral view, and possible left breast ultrasound for further evaluation of a left breast mass. ASSESSMENT: BI-RADS Category 0: Incomplete- Need Additional Imaging Evaluation and/or Prior Mammograms for Comparison.
== END 2023-08-29 23:59 | disposition home or self-care (01) ==
LOC: RAD 14:48
PROVIDERS: PCP Family Medicine; Visit Provider Family Medicine
DX: Z12.31 Encounter for screening mammogram for malignant neoplasm of breast (principal)
CPT/HCPCS: 77063; 77067

== ENCOUNTER 2023-11-22 10:10 | Day surgery (SDC) | payer MEDICARE, SELFPAY ==
[2023-11-22] MEDS: LACTATED RINGERS 1000ML 1,000 ML 25 ML IV (10:23)
[2023-11-22 10:28] VITALS: BP 122/60; PULSE 103; RESP 18; TEMP 36.4; O2SAT 92; BMI 22.8
--- NOTE | 2023-11-22 11:17 | HMH.SCOPE ---
Procedure: Date: 11/22/23 Patient Date of :: 1950 Procedure Performed:: Colonoscopy (aborted) Indications:: Screening Performing Provider:: Alo Herzog MD Referring Provider:: Dr. Trujillo Sedation:: Monitored anesthesia care Procedure:: After informed consent was obtained the patient was taken to the endoscopy suite. Sedation ensued after the patient was transferred to the left lateral decubitus position. Pulse, blood pressure, and oxygen saturation were monitored throughout the procedure. Digital rectal exam revealed no significant abnormality. The colonoscope was placed in position. Large volume formed stool noted within the rectum/sigmoid. The decision was made to forego attempts at advancement of the colonoscope. The colonoscope was carefully removed and the patient was transferred to recovery in stable condition. Please see findings and specimens below for detail. Findings:: Exceedingly poor bowel preparation with formed stool in the rectum/sigmoid Specimens:: none Recommendations:: Short-term repeat colonoscopy once evaluated by the gastroenterology service for chronic constipation (repeat colonoscopy deferred to the gastroenterology service). Complications:: Exceedingly poor bowel preparation (colonoscopy aborted) Estimated blood obtained (mL): 0 Colonoscopy Component Colonoscopy Component Was a colonoscopy performed during today's procedure?: Yes Recommended follow up colonoscopy of at least 10 years?: No If no, follow up colonoscopy recommended in ___ years?: (See above) Reason for not recommending >/= 10 yr follow-up interval?: (See above)
--- NOTE | 2023-11-22 11:31 | P.PNANES_ITS ---
[facility] Disclaimer: The information contained in this section may have been updated after the patient was seen, as this information can be updated by other users. Medical History Urinary incontinence Primary hypertension Hyperlipidemia Proteinuria History of stroke Diabetes mellitus Surgical History S/P hysterectomy S/P cholecystectomy Family History (Updated 11/22/23 @ 10:28 by Cornelius Stanton RN) Other Family history of cancer Family history of heart disease Social History (Updated 11/22/23 @ 10:28 by Cornelius Stanton RN) Smoking Status: Never smoker alcohol intake: never substance use type: denies use current occupational status: retired Travel in the last 8 weeks: None household members: spouse and significant other housing: house [facility] Anesthesia Checklist Patient Identification Patient Identification: Arm Band, Family and Verbal (Name & ) Structural Data Admitted From: Home Planned Operative Procedure/s: Colonoscopy Consent for Planned Operative Procedure(s) Verified: Yes Verified Documents: Surgical Consent and History and Physical NPO Status Verified Time NPO: 07:30 Chart Verification Results Verified: CBC, BMP, ECG and Chest Xray Additional verifications Fingerstick Blood Glucose: 167 Patient : No Anesthesia Reactions: No Cardiovascular Assessment Heart Sounds: S1 & S2 Pulse Rhythm: Irregular Peripheral Edema: No Airway Assessment Mallampati Score:: Class II C-Spine Mobility Assessed: Yes (FROM) TMJ Mobility Assessed: Yes Dentition: Dentures-good fit (Nothing loose per pt.) Neurological Assessment Level of Consciousness: Awake, Alert, Appropriate and Follows Commands Hx Seizures: No Numbness or tingling in extremities: Yes (Left-sided paralysis) Anesthesia Plan Anesthesia Risk discussed: Yes Anesthesia Plan: Verified ASA Class: III Anesthesia Type: MAC
[2023-11-22 11:35] VITALS: O2SAT 92
[2023-11-22 11:52] VITALS: BP 130/65; PULSE 85; RESP 16; TEMP 36.6; O2SAT 95
[2023-11-22 12:02] VITALS: BP 117/63; PULSE 75; RESP 16; O2SAT 95
[2023-11-22 12:12] VITALS: BP 127/67; PULSE 72; RESP 16; O2SAT 96
[2023-11-22 12:22] VITALS: BP 132/77; PULSE 75; RESP 16; O2SAT 100
[2023-11-23 06:41] LABS: POC Glucose,Bedside 167 (70-110)
== END 2023-11-22 12:35 | disposition home or self-care (01) ==
PROVIDERS: PCP Family Medicine; Visit Provider Surgery
PROC: 0DJD8ZZ Inspection of Lower Intestinal Tract, Via Natural or Artificial Opening Endoscopic (ICD-10-PCS; principal; 2023-11-22 11:30)
DX: E11.8 Type 2 diabetes mellitus with unspecified complications (principal); Z79.4 Long term (current) use of insulin; Z79.84 Long term (current) use of oral hypoglycemic drugs; Z12.11 Encounter for screening for malignant neoplasm of colon; Z53.8 Procedure and treatment not carried out for other reasons
CPT/HCPCS: G0121; 82962; J7120

== ENCOUNTER 2024-02-20 10:15 | Outpatient (CLI) | payer MEDICARE, SELFPAY ==
[2024-02-20 21:23] LABS: Creatinine,Urine Random 80 mg/dL (Not Estab.)
[2024-02-20 21:29] LABS: Microalbumin/Creatinine Ratio 66.2
== END 2024-02-20 23:59 | disposition home or self-care (01) ==
LOC: LAB.DROPOF 02-22 09:38
PROVIDERS: PCP Family Medicine; Visit Provider Family Medicine
DX: E11.9 Type 2 diabetes mellitus without complications (principal)
CPT/HCPCS: 82043; 82570

== ENCOUNTER 2024-04-09 12:05 | Outpatient (CLI) | payer MEDICARE, SELFPAY | END 2024-04-09 23:59 | disposition home or self-care (01) | LOC: LAB.DROPOF 04-10 12:27 | PROVIDERS: PCP Nurse Practitioner; Visit Provider Nurse Practitioner | DX: N39.0 Urinary tract infection, site not specified (principal); B96.1 Klebsiella pneumoniae [K. pneumoniae] as the cause of diseases classified elsewhere | CPT/HCPCS: 87086; 87088; 87186 ==

== ENCOUNTER 2024-05-05 14:05 | Emergency (ER) | payer MEDICARE, SELFPAY ==
[2024-05-05 14:06] VITALS: BP 130/79; PULSE 122; RESP 16; TEMP 36.8; O2SAT 98; BMI 25.4
--- NOTE | 2024-05-05 14:17 | XR_ITS ---
PROCEDURE INFORMATION: Exam: XR Chest Exam date and time: 05/05/2024 2:23 PM Age: 73 years old Clinical indication: Wheezing; Additional info: Art wheezes posteriorly TECHNIQUE: Imaging protocol: Radiologic exam of the chest. Views: 2 views. COMPARISON: CT ABDOMEN PELVIS W CON 06/27/2022 12:01 PM FINDINGS: Lungs: Unremarkable. No consolidation. Pleural spaces: Unremarkable. No pleural effusion. No pneumothorax. Heart/Mediastinum: Unremarkable. No cardiomegaly. Bones/joints: Unremarkable. IMPRESSION: No acute findings.
--- NOTE | 2024-05-05 14:26 | ED_ITS ---
Discharge Plan Disposition Patient Disposition: Home, Self-Care Prescriptions Prescriptions: New oseltamivir [Tamiflu] 75 mg capsule 75 mg PO BID 5 Days Qty: 10 0RF grqxswdmunrvipb-vfyiegrfr-EQ 2-30-10 mg/5 mL syrup 5 ml PO Q6H PRN (Reason: cold symptoms) 7 Days Qty: 118 0RF No Action cefuroxime axetil 500 mg tablet 500 mg PO BID Qty: 14 0RF Antivert 50 mg tablet 50 mg PO BID PRN (Reason: dizziness) Qty: 60 3RF insulin glargine [Lantus Solostar U-100 Insulin] 100 unit/mL (3 mL) insulin pen 30 unit SQ HS Qty: 15 10RF Rx Instructions: please include pen needles #100 [id number] amlodipine-benazepril [Lotrel] 10-40 mg capsule 1 cap PO DAILY Qty: 90 3RF aspirin 81 mg tablet,delayed release (DR/EC) 81 mg PO DAILY Qty: 100 3RF atorvastatin 40 mg tablet 40 mg PO DAILY Qty: 90 3RF metformin 1,000 mg tablet 1,000 mg PO DAILY Qty: 90 3RF Jardiance 25 mg tablet 25 mg PO DAILY Qty: 90 3RF Referrals Follow up/Referrals: Robert Trujillo MD [Primary Care Provider] - See instructions Activity Restrictions/Add. Instructions Additional Instructions/Restrictions: Your symptoms today are consistent with a viral syndrome secondary to influenza A. You been prescribed Tamiflu as you are high risk for complications please return with any significant worsening of your symptoms. Please take Tylenol and ibuprofen as needed for fever body aches and drink plenty of fluids during this illness. Clinical Impressions Clinical Impression: Influenza A Print Language Print Language: Italian Discharge ED Provider: Jacob Kenyon General Adult HPI <Jacob Kenyon MD - Last Filed: 05/05/24 15:14> General Chief complaint: Upper Respiratory Infection Stated complaint: body ache, headache, cough Time Seen by Provider: 05/05/24 14:10 Mode of Arrival: Ambulatory Source of Information: Patient Limitations: No Limitations Description of Symptoms (Recalled from ER Triage Doc. by RN): Patient reports ongoing coughing and congestion. History of Present Illness HPI narrative: Please note that above description of symptoms, in this electronic medical record under categorization of recalled from ER triage doctor by RN are reflective of an initial nursing assessment, however, is not reflective of my full history and physical exam that was personally taken and clarified. Consequentially, this preceding description of symptoms, which may include the patient's categorized chief complaint in the EMR, do not reflect my personal clinical impression, and the ultimate description of history of present illness and patient stated complaints should be deferred to this section of the note. Unless stated otherwise or congruent with this section of the note, additional signs, symptoms, or incongruence should be interpreted as inaccurate with my clinical impression. Related Data Previous Rx's ?Medication ?Instructions ?Recorded meclizine 50 mg tablet (Antivert) 50 mg PO BID PRN dizziness #60 tabs 07/27/21 amlodipine 10 mg-benazepril 40 mg 1 cap PO DAILY #90 caps 02/20/24 capsule (Lotrel) aspirin 81 mg tablet,delayed 81 mg PO DAILY #100 tabs 02/20/24 release atorvastatin 40 mg tablet 40 mg PO DAILY #90 tabs 02/20/24 insulin glargine 100 unit/mL (3 30 unit (0.3 mL) SQ HS #15 mL 02/20/24 mL) subcutaneous pen (Lantus Solostar U-100 Insulin) metformin 1,000 mg tablet 1,000 mg PO DAILY #90 tabs 02/20/24 cefuroxime axetil 500 mg tablet 500 mg PO BID #14 tabs 04/09/24 empagliflozin 25 mg tablet 25 mg PO DAILY #90 tabs 04/25/24 (Jardiance) nusqrkdoasaodmt-dlmggsawbqdeczf-QY 5 ml PO Q6H PRN cold symptoms 7 05/05/24 2 mg-30 mg-10 mg/5 mL oral syrup days #118 mL oseltamivir 75 mg capsule (Tamiflu) 75 mg PO BID 5 days #10 caps 05/05/24 Allergies Allergy/AdvReac Type Severity Reaction Status Date / Time codeine AdvReac Verified 04/09/24 11:50 [facility] <Jacob Kenyon MD - Last Filed: 05/05/24 15:14> [facility] Disclaimer: The information contained in this section may have been updated after the patient was seen, as this information can be updated by other users. Medical History Urinary incontinence Primary hypertension Hyperlipidemia Proteinuria History of stroke Diabetes mellitus Surgical History S/P hysterectomy S/P cholecystectomy Family History Other Family history of cancer Family history of heart disease Social History Smoking Status: Unknown if ever smoked alcohol intake: never substance use type: denies use current occupational status: retired Travel in the last 8 weeks: None household members: spouse and significant other housing: house Have you lived/traveled outside [place] in past 30 days?: No Contact w/someone who lives/traveled outside [place] past 30 days?: No Exposure to someone with infectious disease in past 14 days?: No Do you have a fever (greater than 100.4 F or 38 C)?: No Have you tested positive for COVID-19: No Exposed to someone with COVID-19 in past 14 days?: No Do you have a sore throat?: No Do you have a cough?: Yes Do you have any weakness?: No Do you have any diarrhea?: No Are you experiencing any unusual bleeding?: No Do you have any muscle aches/pain?: Yes Do you have any abdominal pain?: No Are you experiencing loss of taste or smell?: No Other Medical History Have you received the Pneumonia Vaccine: No <Jacob Kenyon MD - Last Filed: 05/05/24 15:14> ROS Obtained: Yes All systems reviewed & no additional complaints except as documented Physical Exam <Jacob Kenyon MD - Last Filed: 05/05/24 15:14> General General appearance: alert Head Head exam: atraumatic and normocephalic Eye Eye exam: Present normal appearance, PERRL and EOMI Neck Neck exam: Present normal inspection, full ROM and trachea midline Respiratory Respiratory exam: Present wheezes (Isolated on the left side posteriorly); Absent respiratory distress, stridor, accessory muscle use or prolonged expiratory phase Cardiovascular Cardiovascular exam: Present other (Pulses equal symmetric in upper and lower extremities) Abdominal Exam Abdominal exam: Present soft; Absent distention, tenderness or pulsatile mass Extremities Exam Extremities exam: Absent edema Neurological Exam Neurological exam: Present alert, oriented X3 and CN II-XII intact; Absent motor sensory deficit Skin Skin exam: Present warm and dry; Absent diaphoresis or erythema Medical Decision Making <Jacob Kenyon MD - Last Filed: 05/05/24 15:14> Medical Records Medical records reviewed: Yes I reviewed the patient's medical records. Screening: Per USPSTF and CDC recommendations, given the prevalence of disease in our region, it is our hospital?s policy to screen for HIV and viral Hepatitis for all patients aged 18 and over and those with ongoing risk factors. Arturo Inquiry Pt receiving controlled substance: No Arturo was queried for this patient: No Vital Signs: 05/05/24 14:06 Temperature 98.3 F Temperature Source Oral Pulse Rate [Radial] 122 H Respiratory Rate 16 Blood Pressure [Right Arm] 130/79 Blood Pressure Mean [Right Arm] 96 Blood Pressure Source [Right Arm] Automatic Cuff Blood Pressure Position [Right Arm] Sitting 02 Sat by Pulse Oximetry 98 Oxygen Delivery Method Room Air Lab Data Lab Results 05/05/24 14:09: SARS-CoV-2 (PCR) Not detected, Influenza A Untype (PCR) Detected A, Influenza Type B (PCR) Not detected Orders (Tests/Meds): ED MEDICATIONS Discontinued Medications Generic Name Dose Route Start Last Admin Trade Name Freq PRN Reason Stop Dose Admin Dexamethasone 10 mg 05/05/24 14:17 05/05/24 14:30 Dexamethasone 4mg Tablet PO 05/05/24 14:18 10 mg ONCE ONE Administration ORDERS Category Date Time Status CXR 2 view (NOT portable) [XR chest 2V] Stat Exams 05/05/24 14:17 Completed HIV Combo Stat Lab 05/05/24 14:15 Ordered Hepatitis C Ab Qual. W/ RFX Stat Lab 05/05/24 14:15 Ordered Rapid PCR Covid and Flu A/B Stat Lab 05/05/24 14:09 Completed Medical Decision Narrative: 73-year-old female no relevant medical history presenting with viral syndrome. States that she has had symptoms for about 2 days. Significant other started having symptoms 4 days ago. Fevers, aches, cough that is nonproductive. Has not taken anything to help with symptoms. She does not currently smoke or have any lung disease. History obtained the patient. On arrival, she is very clinically well-appearing. Isolated wheezes left posterior lung field superio rly and upper lobe. No increased work of breathing, but mildly tachycardic. IV fluids to be pushed, swab to be obtained and Decadron administered. On chest x- ray, I would appreciate any focal consolidation on independent interpretation. On independent interpretation, swab is influenza A positive. Prior to reevaluation and discharge, care handed off to oncoming physician. Doubling Machine Operator disclaimer Much of this encounter note is an electronic side seam envelope machine operator spoken language to printed text. Electronic side seam envelope machine operator of the spoken language may permit errors. Although I have reviewed the note, some errors may still exist. <Annabelle Pulido MD - Last Filed: 05/05/24 15:39> Vital Signs: 05/05/24 14:06 Temperature 98.3 F Temperature Source Oral Pulse Rate [Radial] 122 H Respiratory Rate 16 Blood Pressure [Right Arm] 130/79 Blood Pressure Mean [Right Arm] 96 Blood Pressure Source [Right Arm] Automatic Cuff Blood Pressure Position [Right Arm] Sitting 02 Sat by Pulse Oximetry 98 Oxygen Delivery Method Room Air Lab Data Lab results reviewed: Yes I reviewed the patient's lab results. Lab Results 05/05/24 14:09: SARS-CoV-2 (PCR) Not detected, Influenza A Untype (PCR) Detected A, Influenza Type B (PCR) Not detected Orders (Tests/Meds): ED MEDICATIONS Discontinued Medications Generic Name Dose Route Start Last Admin Trade Name Freq PRN Reason Stop Dose Admin Dexamethasone 10 mg 05/05/24 14:17 05/05/24 14:30 Dexamethasone 4mg Tablet PO 05/05/24 14:18 10 mg ONCE ONE Administration ORDERS Category Date Time Status CXR 2 view (NOT portable) [XR chest 2V] Stat Exams 05/05/24 14:17 Completed HIV Combo Stat Lab 05/05/24 14:15 Ordered Hepatitis C Ab Qual. W/ RFX Stat Lab 05/05/24 14:15 Ordered Rapid PCR Covid and Flu A/B Stat Lab 05/05/24 14:09 Completed Medical Decision Narrative: 73-year-old female no relevant medical history presenting with viral syndrome. States that she has had symptoms for about 2 days. Significant other started having symptoms 4 days ago. Fevers, aches, cough that is nonproductive. Has not taken anything to help with symptoms. She does not currently smoke or have any lung disease. History obtained the patient. On arrival, she is very clinically well-appearing. Isolated wheezes left posterior lung field superiorly and upper lobe. No increased work of breathing, but mildly tachycardic. IV fluids to be pushed, swab to be obtained and Decadron administered. On chest x-ray, I would appreciate any focal consolidation on independent interpretation. On independent interpretation, swab is influenza A positive. Prior to reevaluation and discharge, care handed off to oncoming physician. Doubling Machine Operator disclaimer Much of this encounter note is an electronic side seam envelope machine operator spoken language to printed text. Electronic side seam envelope machine operator of the spoken language may permit errors. Although I have reviewed the note, some errors may still exist. Reassessment this is Dr. Pulido took over from Dr. Kenyon at 3 PM. Chest x-ray was performed which I personally interpreted which shows no evidence of any dense consolidation. No other focal abnormalities noted. On reassessment patient breathing very comfortably her oxygen saturations are 99% and her heart rate in my evaluation is 105. She does not appear significantly dehydrated she has been advised to take Tylenol and ibuprofen she has been given a prescription of Bromfed as well as Tamiflu as she is high risk and symptoms are within 48 hours of symptoms. Return precautions emphasized patient discharged in a stable condition. Critical Care <Jacob Kenyon MD - Last Filed: 05/05/24 15:14> Critical Care Time Critical Care Time: No
[2024-05-05] MEDS: DEXAMETHASONE 4MG TABLET 10 MG PO (14:30)
[2024-05-05 14:33] LABS: Coronavirus 19, PCR Not Detected (NotDetected); Influenza B, PCR Not Detected (NotDetected)
--- NOTE | 2024-05-05 14:40 | PC.NURSE ---
rounded on the pt. the pt voices that she does not need anything at this time. call light is within reach of the pt.
[2024-05-05 15:11] LABS: Influenza A, PCR Detected (NotDetected)
[2024-05-05 15:40] VITALS: BP 128/74; PULSE 110; RESP 18; TEMP 36.9; O2SAT 98
== END 2024-05-05 15:40 | disposition home or self-care (01) ==
PROVIDERS: Emergency Provider Emergency Medicine; PCP Family Medicine
DX: J10.1 Influenza due to other identified influenza virus with other respiratory manifestations (principal); R50.9 Fever, unspecified; R05.9 Cough, unspecified; R09.81 Nasal congestion; R51.9 Headache, unspecified; M79.10 Myalgia, unspecified site
CPT/HCPCS: 71046; 87636; 99283; J8540

== ENCOUNTER 2024-05-21 10:24 | Outpatient (CLI) | payer MEDICARE, SELFPAY ==
[2024-05-21 19:19] LABS: Basophils % 0.4 % (0.1-2.0); Eosinophils # 0.1 K/mm3 (0.0-0.4); Eosinophils % 1.3 % (0.1-12.0); Hematocrit 46.8 % (37.0-47.0); Hemoglobin 14.6 g/dL (12.2-16.2); Lymphocytes # 2.8 K/mm3 (0.7-4.5); Lymphocytes % 29.1 % (10-50); Mean Corpuscular HGB Conc 31.2 g/dL (31.8-35.4); Mean Corpuscular Hemoglobin 28.2 pg (27.0-31.2); Mean Corpuscular Volume 90.3 fl (81-99); Mean Platelet Volume 9.9 fl (7.4-10.4); Monocytes # 0.7 K/mm3 (0.1-1.0); Monocytes % 6.8 % (1.7-9.3); Neutrophils # 5.9 K/mm3 (1.8-7.8); Neutrophils % 62.1 % (37.0-80.0); Platelet Count 329 K/mm3 (142-424); Red Blood Count 5.18 M/mm3 (4.20-5.40); Red Cell Distribution Width 14.6 % (11.5-17.5); White Blood Count 9.5 K/mm3 (4.8-10.8)
[2024-05-21 20:35] LABS: Creatinine,Urine Random 41 mg/dL (Not Estab.)
[2024-05-21 20:41] LABS: Alanine Aminotransferase 22 U/L (12-78); Albumin Level 4.6 g/dl (3.5-5.0); Albumin/Globulin Ratio 1.8 (1.1-1.8); Alkaline Phosphatase 96 U/L (38-126); Anion Gap 12.6 mEq/L (5-15); Aspartate Amino Transferase 23 U/L (14-36); Bilirubin,Total 0.7 mg/dl (0.2-1.3); Blood Urea Nitrogen 14 mg/dl (7-17); Calcium 9.7 mg/dl (8.4-10.2); Carbon Dioxide 21 mmol/L (22.0-30.0); Chloride 106 mmol/L (98-107); Chol/HDL Ratio 3.6 (1-3.5); Cholesterol 176 mg/dl (140-200); Estimated Glomerular Filt Rate 82 ml/min (>60); GFR (African American) 100 ML/MIN (>60); Globulin 2.5 g/dL (1.3-3.2); Glucose 187 mg/dl (74-100); HDL Cholesterol 49 mg/dl (40-60); Microalbumin/Creatinine Ratio 19.2; Potassium 4.6 mmoL/L (3.5-5.1); Sodium 135 mmol/L (136-145); Total Protein,Serum 7.1 g/dl (6.3-8.2); Triglycerides 261 mg/dl (30-150); VLDL Cholesterol 52 mg/dL (0-40)
[2024-05-21 21:12] LABS: Thyroid Stimulating Hormone 1.23 uIU/mL (0.465-4.68)
[2024-05-21 21:14] LABS: Direct LDL Cholesterol 81.35 mg/dL (100-129)
[2024-05-21 21:55] LABS: Vitamin B12 932 pg/mL (239-931)
[2024-05-21 22:18] LABS: Hemoglobin A1C 7.7 % (4.0-6.0)
== END 2024-05-21 23:59 | disposition home or self-care (01) ==
LOC: LAB.DROPOF 05-22 12:16
PROVIDERS: PCP Nurse Practitioner; Visit Provider Nurse Practitioner
DX: E11.9 Type 2 diabetes mellitus without complications (principal); E78.5 Hyperlipidemia, unspecified; I10 Essential (primary) hypertension; Z79.4 Long term (current) use of insulin; Z79.84 Long term (current) use of oral hypoglycemic drugs
CPT/HCPCS: 80053; 80061; 82043; 82570; 82607; 83036; 84443; 85025

== ENCOUNTER 2024-09-04 13:43 | Emergency (ER) | payer MEDICARE, SELFPAY ==
[2024-09-04 13:53] VITALS: BP 146/73; PULSE 100; RESP 20; TEMP 36.8; O2SAT 94; BMI 25.4
--- NOTE | 2024-09-04 13:55 | HMH.EDGENADL ---
Discharge Plan Disposition Patient Disposition: Home, Self-Care Prescriptions Prescriptions: New nitrofurantoin monohyd/m-cryst [Macrobid] 100 mg capsule 100 mg PO BID 5 Days Qty: 10 0RF Rx Instructions: must administer with a meal/food No Action aspirin 81 mg tablet,delayed release (DR/EC) 81 mg PO DAILY Qty: 100 3RF amlodipine-benazepril [Lotrel] 10-40 mg capsule 1 cap PO DAILY Qty: 90 3RF atorvastatin 40 mg tablet 40 mg PO DAILY Qty: 90 3RF metformin 1,000 mg tablet 1,000 mg PO DAILY Qty: 90 3RF insulin glargine [Lantus Solostar U-100 Insulin] 100 unit/mL (3 mL) insulin pen 40 unit SQ HS Qty: 15 10RF Rx Instructions: please include pen needles #100 [id number] (DME) Dexcom G7 Sensor Device See Rx Instructions .Route Qty: 3 12RF Rx Instructions: As directed (DME) Dexcom G7 Wood Scrap Handler Misc See Rx Instructions .Route Qty: 1 0RF Rx Instructions: As directed Referrals Follow up/Referrals: Robert Trujillo MD [Primary Care Provider, Family Practice] - See instructions Activity Restrictions/Add. Instructions Additional Instructions/Restrictions: Increase fluids and rest. Take Macrobid as directed. Please follow-up with your PCP for further instruction and management. Clinical Impressions Clinical Impression: UTI (urinary tract infection) Instructions Patient Instructions: DI for Urinary Tract Infection (UTI) Print Language Print Language: Kazakh Discharge ED Provider: Jacob Kenyon General Adult HPI <Romi Stoddard (ED), PRIMING POWDER PREMIX BLENDER - Last Filed: 09/04/24 14:32> General Chief complaint: Urogenital-Female Stated complaint: pain lower right abd Time Seen by Provider: 09/04/24 13:47 Mode of Arrival: Ambulatory Source of Information: Patient Description of Symptoms (Recalled from ER Triage Doc. by RN): urinary symptoms. burning since this am. History of Present Illness HPI narrative: 74-year-old female presents to the ED today for complaint of burning pressure with urination. She complains of pressure in her right lower abdomen. This started today when she got up. No nausea, vomiting or diarrhea. No fevers or chills. No other symptoms stated today. Related Data Previous Rx's ?Medication ?Instructions ?Recorded aspirin 81 mg tablet,delayed 81 mg PO DAILY #100 tabs 02/20/24 release amlodipine 10 mg-benazepril 40 mg 1 cap PO DAILY #90 caps 05/21/24 capsule (Lotrel) atorvastatin 40 mg tablet 40 mg PO DAILY #90 tabs 05/21/24 metformin 1,000 mg tablet 1,000 mg PO DAILY #90 tabs 05/21/24 blood-glucose sensor (Dexcom G7 #3 ea 08/20/24 Sensor device) blood-glucose,workcell operator,cont #1 ea 08/20/24 (Dexcom G7 Wood Scrap Handler) insulin glargine 100 unit/mL (3 40 unit (0.4 mL) SQ HS #15 mL 08/20/24 mL) subcutaneous pen (Lantus Solostar U-100 Insulin) nitrofurantoin 100 mg PO BID 5 days #10 caps 09/04/24 monohydrate/macrocrystals 100 mg capsule (Macrobid) Allergies Allergy/AdvReac Type Severity Reaction Status Date / Time codeine AdvReac Verified 08/20/24 09:20 [facility] <Romi Stoddard (ED), [employer]IMING POWDER PREMIX BLENDER - Last Filed: 09/04/24 14:32> PFS Disclaimer: The information contained in this section may have been updated after the patient was seen, as this information can be updated by other users. Medical History Urinary incontinence Primary hypertension Hyperlipidemia Proteinuria History of stroke Diabetes mellitus Surgical History S/P hysterectomy S/P cholecystectomy Family History Other Family history of cancer Family history of heart disease Social History Smoking Status: Never smoker alcohol intake: never substance use type: denies use current occupational status: retired Travel in the last 8 weeks?: None household members: spouse and significant other housing: house Have you lived/traveled outside US in past 30 days?: No Contact w/someone who lives/traveled outside US past 30 days?: No Exposure to someone with infectious disease in past 14 days?: No Do you have a fever (greater than 100.4 F or 38 C)?: No Have you tested positive for COVID-19?: No Exposed to someone with COVID-19 in past 14 days?: No Do you have a sore throat?: No Do you have a cough?: No Do you have any weakness?: No Do you have any diarrhea?: No Are you experiencing any unusual bleeding?: No Do you have any muscle aches/pain?: No Do you have any abdominal pain?: Yes Are you experiencing loss of taste or smell?: No Other Medical History Have you received the Pneumonia Vaccine: No <[facility] [employer] P[employer] PREMIX BLENDER - Last Filed: 09/04/24 14:32> ROS Obtained: Yes Systems reviewed as appropriate & no additional complaints except as documented Constitutional Constitutional: Reports as per HPI Physical Exam <[facility] (ED), [employer]IMING P[employer] BLENDER - Last Filed: 09/04/24 14:32> General General appearance: alert and in no apparent distress Head Head exam: atraumatic and normocephalic Eye Eye exam: Present PERRL and EOMI ENT ENT exam: Present normal oropharynx and mucous membranes moist Neck Neck exam: Present full ROM and trachea midline Respiratory Respiratory exam: Present normal lung sounds bilaterally Cardiovascular Cardiovascular exam: Present regular rate, normal rhythm, normal heart sounds, +S1 and +S2 Abdominal Exam Abdominal exam: Present soft and normal bowel sounds Abdominal tenderness: Present suprapubic Comment: Patient complains of pressure Extremities Exam Extremities exam: Present normal inspection, full ROM and normal capillary refill Neurological Exam Neurological exam: Present alert, oriented X3 and normal gait Skin Skin exam: Present warm, dry and intact Medical Decision Making <[facility] (ED), [employer]IMING POWDER PREMIX BLENDER - Last Filed: 09/04/24 14:32> Medical Records Medical records reviewed: Yes I reviewed the patient's medical records. Screening: Per USPSTF and CDC recommendations, given the prevalence of disease in our region, it is our hospital?s policy to screen for HIV and viral Hepatitis for all patients aged 18 and over and those with ongoing risk factors. Arturo Inquiry Pt receiving controlled substance: No Arturo was queried for this patient: No Vital Signs: 09/04/24 13:53 09/04/24 14:39 Temperature 98.3 F 98.4 F Temperature Source Oral Pulse Rate 89 Pulse Rate [Right] 100 H Respiratory Rate 20 18 Blood Pressure 150/68 H Blood Pressure [Right Arm] 146/73 H Blood Pressure Mean [Right Arm] 97 02 Sat by Pulse Oximetry 94 L Oxygen Delivery Method Room Air Room Air Lab Data Lab Results 09/04/24 13:51: Urine Color Yellow, Urine Appearance Clear, Urine pH 6.0, Ur Specific Ehrenberg 1.015, Urine Protein 3+ A, Urine Glucose (UA) Negative, Urine Ketones Negative, Urine Blood 3+ A, Urine Nitrate Negative, Urine Bilirubin Negative, Urine Urobilinogen 0.2, Ur Leukocyte Esterase 1+ A, Urine WBC Tntc, Ur Squamous Epith Cells 3-5, Urine Bacteria 3+ Orders (Tests/Meds): ORDERS Category Date Time Status Urinalysis and Microscopic Stat Lab 09/04/24 13:51 Completed Urine Culture Stat Micro 09/04/24 13:51 Results Medical Decision Narrative: patient is a 74-year-old female presenting to the emergency department for evaluation of dysuria and pressure in her low abdomen. Patient is hemodynamically stable and nontoxic-appearing upon arrival, afebrile. Differential diagnosis includes UTI, cystitis, among others. Workup will be conducted with urinalysis. Patient's urinalysis showed protein and leukocytes. We will treat for UTI. Patient safe for discharge home. <Jacob Kenyon MD - Last Filed: 09/05/24 10:34> Vital Signs: 09/04/24 13:53 09/04/24 14:39 Temperature 98.3 F 98.4 F Temperature Source Oral Pulse Rate 89 Pulse Rate [Right] 100 H Respiratory Rate 20 18 Blood Pressure 150/68 H Blood Pressure [Right Arm] 146/73 H Blood Pressure Mean [Right Arm] 97 02 Sat by Pulse Oximetry 94 L Oxygen Delivery Method Room Air Room Air Lab Data Lab Results 09/04/24 13:51: Urine Color Yellow, Urine Appearance Clear, Urine pH 6.0, Ur Specific Ehrenberg 1.015, Urine Protein 3+ A, Urine Glucose (UA) Negative, Urine Ketones Negative, Urine Blood 3+ A, Urine Nitrate Negative, Urine Bilirubin Negative, Urine Urobilinogen 0.2, Ur Leukocyte Esterase 1+ A, Urine WBC Tntc, Ur Squamous Epith Cells 3-5, Urine Bacteria 3+ Orders (Tests/Meds): ORDERS Category Date Time Status Urinalysis and Microscopic Stat Lab 09/04/24 13:51 Completed Urine Culture Stat Micro 09/04/24 13:51 Results Medical Decision Narrative: patient is a 74-year-old female presenting to the emergency department for evaluation of dysuria and pressure in her low abdomen. Patient is hemodynamically stable and nontoxic-appearing upon arrival, afebrile. Differential diagnosis includes UTI, cystitis, among others. Workup will be conducted with urinalysis. Patient's urinalysis showed protein and leukocytes. We will treat for UTI. Patient safe for discharge home. I was consulted by the TED, and we discussed the complexity of the problems being addressed. I approved the treatment and management plan for this patient's care in the Emergency Department, thus performing a substantive portion of the medical decision making. Jacob Kenyon MD Critical Care <Romi Stoddard (ED), [employer]IMING POWDER PREMIX BLENDER - Last Filed: 09/04/24 14:32> Critical Care Time Critical Care Time: No
[2024-09-04 13:56] LABS: Microscopic, Urine URINE MICROSCOPIC (MICROSCOPIC)
[2024-09-04 14:03] LABS: Appearance,Urine CLEAR (Clear); Bilirubin,Urine Negative (Negative); Blood, Urine 3+ (Negative); Color,Urine YELLOW (Yellow); Glucose,Urine (UA) Negative (Negative); Ketones,Urine Negative (Negative); Leukocyte Esterase,Urine 1+ (Negative); Nitrate,Urine Negative (Negative); Protein,Urine 3+ (Negative); Specific Gravity, Urine 1.015 (1.005-1.030); Urobilinogen,Urine 0.2 EU/dl (0.2)
[2024-09-04 14:34] LABS: Bacteria,Urine 3+ /lpf; WBC,Urine TNTC #/hpf (0-3)
[2024-09-04 14:39] VITALS: BP 150/68; PULSE 89; RESP 18; TEMP 36.9; O2SAT 98
--- NOTE | 2024-09-08 08:43 | PC.NURSE ---
Urine culture results reviewed by Dr. Pulido. No new orders received at this time.
--- NOTE | 2024-09-09 08:41 | PC.NURSE ---
Urine culture results reviewed by Dr. Renee, antibiotics sent to [facility]. Called patient and spoke with her, she states she is feeling better, has finished her first antibiotic. Advised her we have sent in new antibiotic and she needs to start new one and finish entire course of antibiotic. Patient verbalized understanding.
--- NOTE | 2024-09-09 08:41 | EXP.EVENT.NO ---
Urine culture resulted relative this patient and she is currently on Macrobid which is resistant. Charge nurse contacted patient who is feeling much better. Given this no repeat evaluation is warranted and we will switch antibiotics to cefdinir per sensitivity report for 7 days.
== END 2024-09-04 14:40 | disposition home or self-care (01) ==
PROVIDERS: Nurse Practitioner; Emergency Provider Emergency Medicine; PCP Family Medicine
DX: R10.31 Right lower quadrant pain (principal); N39.0 Urinary tract infection, site not specified; R30.0 Dysuria
CPT/HCPCS: 81001; 87086; 87088; 87186; 99283

== ENCOUNTER 2024-10-29 09:17 | Emergency (ER) | payer MEDICARE, SELFPAY ==
--- NOTE | 2024-10-29 09:25 | ECG_ITS ---
APPROVED REPORT Exam: Resting ECG HR:89 bpm ECG Measurements Heart Rate [address] 142 P 47 QRSd 90 QRS 45 QT 360 T 66 QTc 407 Conclusion Normal sinus rhythm Normal Enochs Normal Intervals NO STEMI Electronically signed by : Bryan Stevenson, 10/29/2024 17:19:08
--- NOTE | 2024-10-29 09:26 | PC.NURSE ---
FSBS 94 at this time.
[2024-10-29 09:31] VITALS: BP 153/82; PULSE 89; RESP 14; O2SAT 99
--- NOTE | 2024-10-29 09:36 | CT_ITS ---
FINAL REPORT TECHNIQUE: Axial CT images were performed through the head. Coronal reformatted images were submitted. This study was performed with techniques to keep radiation doses as low as reasonably achievable (ALARA). Individualized dose reduction techniques using automated exposure control or adjustment of mA and/or kV according to the patient's size were employed. CLINICAL HISTORY: possible stroke FINDINGS: There is mild, diffuse atrophy with proportional ventriculomegaly. Patchy decreased attenuation is seen in the basal ganglia bilaterally likely due to old lacunar infarcts. There is no evidence of hemorrhage. There is no mass or edema identified. There is no abnormal extra-axial fluid seen. There is a retention cyst or polyp in the right maxillary sinus. Note is made of hyperostosis frontalis interna. IMPRESSION: No acute intracranial process. Reviewed, Interpreted and Dictated by Thor Mendez MD Transcribed by Meme Sinclair Authenticated and [facility]
--- NOTE | 2024-10-29 09:36 | CT_ITS ---
FINAL REPORT TECHNIQUE: thin section axial CT with and without IV contrast supplemented with multiplanar 3-D reconstruction of the head. This study was performed with techniques to keep radiation doses as low as reasonably achievable, (ALARA)individualized dose reduction techniques using automated exposure control or adjustment of mA and/or kV according to the patient's size were employed. CLINICAL HISTORY: possible stroke COMPARISON: None FINDINGS: CTA: The cranial circulation is unremarkable. There is no significant stenosis, aneurysm or occlusion. IMPRESSION: No acute process. Reviewed, Interpreted and Dictated by Thor Mendez MD Transcribed by Yamileth Olson Authenticated and [facility]
--- NOTE | 2024-10-29 09:36 | CT_ITS ---
FINAL REPORT TECHNIQUE: NASCET technique utilized for stenosis evaluation. CLINICAL HISTORY: possible stroke FINDINGS: The aortic arch and brachiocephalic vessels are unremarkable. Groundglass opacities are seen in the upper lobes of the lungs bilaterally. RIGHT CAROTID: There is calcified plaque in the distal common carotid artery extended the proximal right ICA measuring less than 50% stenosis. There is marked tortuosity of the cervical right ICA. LEFT CAROTID: Moderate vascular calcification is seen of the proximal left ICA with approximately 50% stenosis. Marked tortuosity is seen of the cervical left ICA. VERTEBRALS: The vertebrals are patent. Right vertebral artery is dominant. No significant stenosis is present. CTA head demonstrates no segmental stenosis or aneurysm. 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 Reviewed, Interpreted and Dictated by Thor Mendez MD Transcribed by Meme Sinclair Authenticated and [facility]
--- OUTSIDE RECORDS SUMMARY | 2024-10-29 09:36 | XMS_ITS | Clinical Summary ---
Author Organization [facility] [place] [address] [place] [address] Care Team Providers Care Family Day Carer Name Role Phone None, Physician Primary Care Provider Unavailabl e Allergies Active Allergy Reactions Criticality Noted Date Comments Codeine 05/28/2013 Medications acyclovir (ZOVIRAX) 400 MG tablet Take 400 mg by mouth every 4 (four) hours while awake Active butalbital-aceta minophen-caffein e (FIORICET, ESGIC) 50-325-40 MG per tabletIndication s:Headache, new daily persistent (NDPH) Take 1-2 tablets by mouth every 6 (six) hours as needed for Headaches 30 tablet 1 4 Active traZODone (DESYREL) 50 MG tabletIndication s:Insomnia Take 1 tablet by mouth nightly 90 tablet 3 5 Active lisinopril-hydro chlorothiazide (PRINZIDE,ZESTOR ETIC) 20-12.5 MGIndications:Di abetes mellitus type II, controlled,HTN (hypertension) Take 2 tablets by mouth daily 60 tablet 2 5 Active clonazePAM (KLONOPIN) 0.5 MG tabletIndication s:TERESA (generalized anxiety disorder) Take 1 tablet by mouth 2 (two) times daily as needed for Anxiety 60 tablet 2 5 Active sertraline (ZOLOFT) 100 MG tabletIndication s:TERESA (generalized anxiety disorder) Take 1 tablet by mouth daily 30 tablet 2 5 Active metFORMIN (GLUCOPHAGE) 500 MG tabletIndication s:Diabetes mellitus type II, controlled Take 1 tablet by mouth 2 (two) times daily with meals 60 tablet 2 5 Active etodolac (LODINE) 400 MG tabletIndication s:Viral pharyngitis Take 1 tablet by mouth 2 (two) times daily for 7 days 14 tablet 0 5 Active benzonatate (TESSALON PERLES) 100 MG capsuleIndicatio ns:Viral pharyngitis Take 1 capsule by mouth 3 (three) times daily as needed for Cough 21 capsule 0 5 Active naproxen (NAPROSYN) 375 MG tablet Take 1 tablet by mouth 2 (two) times daily with meals for 7 days 14 tablet 8 Active methocarbamol (ROBAXIN) 750 MG tablet Take 1 tablet by mouth 3 (three) times daily as needed (muscle spasm) 16 tablet 8 Active Active Problems Patient Care Coordination No te Formatting of this note migh t be different from the original. Education Materials Provided Valentina Javon was provided with DM/HTN education materials. Nick Smart MD 07/09/2014 9:15 AM Problem Noted Date Diagnosed Date Diabetes mellitus type II, controlled 07/09/2014 HTN (hypertension) 05/28/2013 TERESA (generalized anxiety disorder) 05/28/2013 Carpal tunnel syndrome on both sides 05/28/2013 Contracture of finger joint 05/28/2013 Resolved Problems Problem Noted Date Diagnosed Date Resolved Date Chest pain 05/28/2013 07/09/2014 Family History Medical History Relation Comments Heart disease Brother age 44 Heart disease Father age 44 Mental illness Maternal Grandfather Heart disease Sister Relation Status Comments Brother Father Maternal Grandfather Sister Social History Tobacco Use Types Packs/Day Years Used Date Smoking Tobacco: Never Alcohol Use Standard Drinks/Week Comments Yes 0 (1 standard drink = 0.6 oz pur e alcohol) Comments No Sex and Gender Information Value Date Recorded Sex Assigned at Not on file Legal Sex Female 10:24 AM EDT Gender Identity Not on file Sexual Orientation Not on file Last Filed Vital Signs Vital Sign Reading Time Taken Comments Blood Pressure 136/74 04/29/2017 5:16 PM EST Pulse 86 04/29/2017 5:16 PM EST Temperature 36.5 C (97.7 F) 04/29/2017 1:13 PM EST Respiratory Rate 16 04/29/2017 5:16 PM EST Oxygen Saturation 99% 04/29/2017 5:16 PM EST Inhaled Oxygen Concentration - - Weight 75.8 kg (167 lb) 08/09/2014 11:07 AM EDT Height 154.9 cm (5' 1 ) 08/09/2014 11:07 AM EDT Body Mass Index 31.55 08/09/2014 11:07 AM EDT Plan of Treatment Health Maintenance Due Date Last Done Comments CT Colonography 1950 Colonoscopy 1950 Colorectal Cancer Screening 1950 FIT-DNA 1950 FIT 1950 FOBT 1950 Hepatitis C Screening 1950 Sigmoidoscopy 1950 Tdap/Td Vaccine >11 yo (1 - Tdap) 09/04/1971 Pneumococcal Vaccines >50 yo (1 of 1 - PCV) 2002 Shingles (Shingrix) (1 of 2) 2002 Diabetic Eye Exam 07/09/2014 Diabetic Presence of Statin 07/09/2014 Diabetic Urine Microalbumin 07/09/2014 Diabetic Hemoglobin A1C 01/08/2015 07/10/19 15, 10/01/2013 Diabetic Creatinine Level 07/10/20152014, 02/23/2014, 2013 Diabetic Foot Exam 07/10/2015 07/09/2014 Diabetic Lipid Panel 07/10/2015 07/09/2014, 2013 Breast Cancer Screening 09/18/2015 09/17/2013 Osteoporosis Screening 2017 Annual SDOH Screening 03/14/2024 Influenza Vaccine (#1) 2024 Haemophilus Influenzae Type B (Hib) Vaccine Aged Out No longer eligible b ased on patient's age to complete this topic Hepatitis A (HepA) Vaccine Aged Out N o longer eligible based on patient's age to complete this topic Hepatitis B (HepB) Vaccine Aged Out N o longer eligible based on patient's age to complete this topic Meningococcal ACWY Aged Out No longer eligible based on patient's age to complete this topic Polio (IPV) Aged Out No longer eligi ble based on patient's age to complete this topic Rotavirus (RV) Vaccine Aged Out No lo nger eligible based on patient's age to complete this topic Procedures Procedure Name Priority Date/Time Associated Diagnosis Comments LIPID PANEL Routine 07/09/2014 2:15 PM EDT Diabetes mellitus type II, controlled BASIC METABOLIC PANEL (BMP) Routine 07/09/2014 2:15 PM EDT HTN (hypertension) POCT GLYCOSYLATED HEMOGLOBIN (HGB A1C) Routine 07/09/2014 10:18 AM EDT Diabetes mellitus type II, controlled MAMMOGRAM SCREENING BILATERAL Routine 09/17/2013 2:13 PM EDT Other screening mammogram from Last 3 Months or Most Recently Relevant to Health Maintenance Results * (ABNORMAL) Lipid panel (07/09/2014 2:15 PM EDT) Triglycerides 288(H) <150 mg/dL [facility] Cholesterol 325(H) <200 mg/dL [facility] HDL 57(L) >=60 mg/dL [facility] Comment: SUGGEST OBTAINING TWO CHOLESTEROL LEVELS ON CHILDREN AT HIGH RISK INDICATED BY A FAMILY HISTORY OF HYPERCHOLESTEROLEMIA OR PREMATURE CORONARY HEART DISEASE. CHOLESTEROL: <170 -RECOMMENDED 170-185 -SUGGEST COUNSELING ABOUT DIET AND OTHER RISK FACTORS AND FOLLOWED AT 1 YEAR INTERVALS 185-200 -SUGGEST SPECIAL DIETARY INSTRUCTION AND EVALUATION OF OTHER RISK FACTORS >200 -STRICT DIET INTERVENTION IS INDICATED. NON-RESPONDERS SHOULD BE CONSIDERED FOR TREATMENT WITH A LIPID LOWERING AGENT. HEREDITARY HYPERCHOLESTEROLEMIAS SHOULD BE CONSIDERED. TEST RECOMMENDED MOD RISK HIGH RISK UNITS TRIGLYCERIDE <200 200-400 >400 MG/DL HDL >60 <35 MG/DL LDL <110 110-130 >130 MG/DL LDL-Calculated 210(H) <100 mg/dL [facility] CHOL/HDL Ratio 6.0 [facility] VLDL 58(H) 5 - 40 mg/dL [facility] Lab BLOOD SPECIMEN FROM PATIENT / Unknown 07/09/2014 2:15 PM EDT 07/09/2014 2:19 PM EDT Gabi [facility] - 07/09/2014 3:02 PM EDT IS PATIENT FASTING?->YES PATIENT RACE NON-BLACK us Nick Smart MD LAB BLOOD ORDERABLES Fi nal Result Performing Organization Address [facility] Co de Phone Number [address] [address] * (ABNORMAL) Basic Metabolic Panel(BMP) (07/09/2014 2:15 PM EDT) Sodium 139 137 - 145 mmol/L [facility] Potassium 4.8 3.5 - 5.4 mmol/L [facility] Chloride 99 98 - 107 mmol/L [facility] CO2 29 22 - 30 mmol/L [facility] Glucose 150(H) 74 - 106 mg/dL [facility] BUN 16 7 - 20 mg/dL [facility] Creatinine 0.7 0.7 - 1.5 mg/dL [facility] BUN/Creat Ratio 22.0(H) 10.0 - 20.0 [facility] Estimated GFR >60 NORMAL>60 /1.73 m2 [facility] Comment: Results provided are valid only for patients who are 18 to 70 years of age. Results do not take into account body mass. Calcium 9.9 8.4 - 10.2 mg/dL [facility] Lab BLOOD SPECIMEN FROM PATIENT / Unknown 07/09/2014 2:15 PM EDT 07/09/2014 2:19 PM EDT Narrative [facility] - 07/09/2014 3:02 PM EDT IS PATIENT FASTING?->YES PATIENT RACE NON-BLACK Nick Smart MD LAB BLOOD ORDERABLES Fi nal Result Performing Organization Address [facility] Co de Phone Number [facility] [address] [place] [address] * (ABNORMAL) POCT Hemoglobin A1C (07/09/2014 10:18 AM EDT) Hemoglobin [id number] 6.6(A) 4.5 - 6.2 Blood specimen from patient (specimen) 07/09/2014 10:18 AM EDT Nikc Smart MD POINT OF CARE TEST ORDE RABLES Final Result * Mammogram Screening Bilateral (09/17/2013 2:13 PM EDT) Anatomical Region Laterality Modality Breast [facility] RAD Mammogra phy 09/17/2013 2:33 PM EDT Impressions 09/17/2013 2:35 PM EDT IMPRESSION: No mammographic evidence for malignancy in either breast. RECOMMENDATION: Routine screening mammogram. A reminder letter will be scheduled. BI-RADS Category 1 - Negative mammogram. The [employer] recommends annual mammograms for women beginning at age 40. Please remember that some cancers, 8 to 10%, cannot be found by mammography alone. Early cancer detection requires a combination of monthly breast examination by the patient, periodic mammograms, and an annual physical exam. Dictated by: Nancy Cutler M.D. Images and Report reviewed and interpreted by: Nancy Cutler M.D. <PS><Electronically signed by: Nancy Cutler M.D.> 09/17/2013 1433 [id number] [id number] Narrative 09/17/2013 2:35 PM EDT RADIOLOGY REPORT FACILITY: [facility] UNIT/AGE/GENDER: G.MAMMO OP AGE:63 Y SEX:F PATIENT NAME/: VALENTINA WALTER 1950 UNIT NUMBER: [id number] ACCESSION NUMBER: [id number] EXAMINATION: Bilateral Screening Digital Mammogram with CAD DATE: 2013-09-17 HISTORY: 63 -year old, Asymptomatic screening mammogram. Baseline mammogram. No family history for breast cancer. COMPARISON: None. FINDINGS: Routine CC and MLO views of the breasts were obtained. Computed Aided Detection (CAD) was performed and used in the interpretation of this examination. There are scattered fibroglandular tissue in both breasts. There are no suspicious masses, calcifications, or other findings that are suspicious for malignancy. Procedure Note Nancy Cutler MD - 09/17/2013 RADIOLOGY REPORT FACILITY: [facility] UNIT/AGE/GENDER: G.MAMMO OP AGE:63 Y SEX:F PATIENT NAME/: VALENTINA WALTER 1950 UNIT NUMBER: [id number] ACCESSION NUMBER: [id number] EXAMINATION: Bilateral Screening Digital Mammogram with CAD DATE: 2013-09-17 HISTORY: 63 -year old, Asymptomatic screening mammogram. Baselinemammogram. No family history for breast cancer. COMPARISON: None. FINDINGS: Routine CC and MLO views of the breasts were obtained. Computed AidedDetection (CAD) was performed and used in the interpretation of thisexamination. There are scattered fibroglandular tissue in both breasts. There are no suspicious masses, calcifications, or other findings that aresuspicious for malignancy. IMPRESSION: No mammographic evidence for malignancy in either breast. RECOMMENDATION: Routine screening mammogram. A reminder letter will bescheduled. BI-RADS Category 1 - Negative mammogram. The [employer] recommends annual mammograms for womenbeginning at age 40. Please remember that some cancers, 8 to 10%, cannotbe found by mammography alone. Early cancer detection requires acombination of monthly breast examination by the patient, periodic mammograms, and an annual physical exam. Dictated by: Nancy Cutler M.D. Images and Report reviewed and interpreted by: Nancy Cutler M.D. <PS><Electronically signed by: Nancy Cutler M.D.> 09/17/2013 1433 [id number] [id number] us Gustabo Esposito MD IMG MAMMOGRAPHY ORDERABLES Final Result from Last 3 Months or Most Recently Relevant to Health Maintenance Care Teams Family Day Carer Relationship Specialty Start Date End Date None, Physician PCP - General 09/22/17
[2024-10-29 09:38] VITALS: BP 175/84; PULSE 96; RESP 18; TEMP 36.6; O2SAT 98; BMI 25.4
--- NOTE | 2024-10-29 09:38 | ED_ITS ---
Discharge Plan Disposition Patient Disposition: Xfer Other Condition: Fair Prescriptions Prescriptions: No Action aspirin 81 mg tablet,delayed release (DR/EC) 81 mg PO DAILY Qty: 100 3RF amlodipine-benazepril [Lotrel] 10-40 mg capsule 1 cap PO DAILY Qty: 90 3RF atorvastatin 40 mg tablet 40 mg PO DAILY Qty: 90 3RF metformin 1,000 mg tablet 1,000 mg PO DAILY Qty: 90 3RF insulin glargine [Lantus Solostar U-100 Insulin] 100 unit/mL (3 mL) insulin pen 40 unit SQ HS Qty: 15 10RF Rx Instructions: please include pen needles #100 [id number] (DME) Dexcom G7 Sensor Device See Rx Instructions .Route Qty: 3 12RF Rx Instructions: As directed (DME) Dexcom G7 Master Technician Misc See Rx Instructions .Route Qty: 1 0RF Rx Instructions: As directed cefdinir 300 mg capsule 300 mg PO BID 7 Days Qty: 14 0RF Referrals Follow up/Referrals: Robert Trujillo MD [Primary Care Provider, [facility]] - See instructions Clinical Impressions Clinical Impression: Acute left-sided weakness Stand Alone Forms Stand Alone Forms: Transfer Record - ED Print Language Print Language: Filipino Discharge ED Provider: Bryan Stevenson Adult HPI General Chief complaint: Neuro Symptoms/Deficit Stated complaint: left hand drawing up,numbness Time Seen by Provider: 10/29/24 09:20 History of Present Illness HPI narrative: This is a 74-year-old female patient, with past medical history of hypertension, hyperlipidemia, type 2 diabetes, prior stroke with left-sided deficits, who is presenting to the emergency department today for evaluation of what she feels is strokelike symptoms. 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 She states that at baseline she is able to extend her fingers on command. Her last known well time was 11 PM last night before going to bed. When waking this morning she had worsening weakness in the left hand and feels that she cannot extend her fingers is much as normal. She also is having worsening left lower extremity weakness. She reports sensory deficits on the left hemiface as well as the left upper extremity and left lower extremity. She has not had any vision changes. No speech deficits. Related Data Previous Rx's ?Medication ?Instructions ?Recorded aspirin 81 mg tablet,delayed 81 mg PO DAILY #100 tabs 02/20/24 release amlodipine 10 mg-benazepril 40 mg 1 cap PO DAILY #90 c aps 05/21/24 capsule (Lotrel) atorvastatin 40 mg tablet 40 mg PO DAILY #90 tabs 05/12 metformin 1,000 mg tablet 1,000 mg PO DAILY #90 tabs 0 05/21/24 blood-glucose sensor (Dexcom G7 #3 ea 08/20/24 Sensor device) blood-glucose,account manager b2b,cont #1 ea 08/20/24 (Dexcom G7 Master Technician) insulin glargine 100 unit/mL (3 40 unit (0.4 mL) SQ HS #15 mL 08/20/24 mL) subcutaneous pen (Lantus Solostar U-100 Insulin) cefdinir 300 mg capsule 300 mg PO BID UTI 7 days #14 caps 09/09/24 Allergies Allergy/AdvReac Type Severity Reaction Status Date / Time codeine AdvReac Verified 09/13/24 14:00 [facility] Disclaimer: The information contained in this section may have been updated after the patient was seen, as this information can be updated by other users. Medical History Urinary incontinence Primary hypertension Hyperlipidemia Proteinuria History of stroke Diabetes mellitus Surgical History S/P hysterectomy S/P cholecystectomy Family History Other Family history of cancer Family history of heart disease Social History Smoking Status: Never smoker alcohol intake: never substance use type: denies use current occupational status: retired Travel in the last 8 weeks?: None household members: spouse and significant other housing: house Have you lived/traveled outside [place] in past 30 days?: No Contact w/someone who lives/traveled outside US past 30 days?: No Exposure to someone with infectious disease in past 14 days?: No Do you have a fever (greater than 100.4 F or 38 C)?: No Have you tested positive for COVID-19?: No Exposed to someone with COVID-19 in past 14 days?: No Do you have a sore throat?: No Do you have a cough?: No Do you have any weakness?: No Do you have any diarrhea?: No Are you experiencing any unusual bleeding?: No Do you have any muscle aches/pain?: No Do you have any abdominal pain?: No Are you experiencing loss of taste or smell?: No Other Medical History Have you received the Pneumonia Vaccine: No ROS Obtained: Yes Systems reviewed as appropriate & no additional complaints except as documented Physical Exam General General appearance: other (See MDM) Respiratory Respiratory exam: Present other (See MDM) Cardiovascular Cardiovascular exam: Present other (See MDM) Neurological Exam Neurological exam: Present other (See MDM) Medical Decision Making Medical Records Medical records reviewed: Yes I reviewed the patient's medical records. Screening: Per USPSTF and CDC recommendations, given the prevalence of disease in our region, it is our hospital?s policy to screen for HIV and viral Hepatitis for all patients aged 18 and over and those with ongoing risk factors. Arturo Inquiry Pt receiving controlled substance: No Arturo was queried for this patient: No Vital Signs: 10/29/24 09:31 10/29/24 09:38 Temperature 97.8 F Temperature Source Oral Pulse Rate 89 Pulse Rate [Right Brachial] 96 H Respiratory Rate 14 18 Blood Pressure 153/82 H Blood Pressure [Right Arm] 175/84 H Blood Pressure Mean [Right Arm] 114 Blood Pressure Source [Right Arm] Automatic Cuff Blood Pressure Position [Right Arm] Sitting 02 Sat by Pulse Oximetry 99 98 Oxygen Delivery Method Room Air Lab Data Lab Results 10/29/24 09:30: WBC 10.7, RBC 4.94, Hgb 14.4, Hct 42.7, MCV 86.4, MCH 29.1, MCHC 33.7, RDW 14.0, Plt Count 325, MPV 9.2, Neut % (Auto) 64.8, Lymph % (Auto) 26.1, [place] % (Auto) 7.6, Eos % (Auto) 0.6, Baso % (Auto) 0.5, Neut # (Auto) 6.9, Lymph # (Auto) 2.8, [place] # (Auto) 0.8, Eos # (Auto) 0.1, Baso # (Auto) 0.1, PT 11.2, INR 1.01, APTT 24.5, Sodium 140, Potassium 4.3, Chloride 106, Carbon Dioxide 24, Anion Gap 14.3, BUN 21 H, Creatinine 0.60, Estimated Creat Clear 49, Estimated GFR 98, Est GFR ( Amer) 119, Glucose 98, Calcium 9.7, Total Bilirubin 1.1, AST 34, ALT 25, Alkaline Phosphatase 122, Troponin I < 0.01, Total Protein 8.4 H, Albumin 4.9, Globulin 3.5 H, Albumin/Globulin Ratio 1.4, Triglycerides 268 H, Cholesterol 169, LDL Cholesterol Direct 66.80 L, VLDL Cholesterol 54 H, HDL Cholesterol 53, Cholesterol/HDL Ratio 3.2, Plasma/Serum Alcohol < 10 10/29/24 09:30 10/29/24 09:30 Orders (Tests/Meds): ED MEDICATIONS Generic Name Dose Route Start Last Admin Trade Name Freq PRN Reason Stop Dose Admin Miscellaneous 1 each 10/29/24 09:36 Consider Pt For Statin At Discharge-Stroke NOTAPPLIC 11/28/24 09:35 NEEDED PRN Reminder for med @discharge Sodium Chloride 10 ml 10/29/24 09:36 Sodium Chloride 0.9% 10ml Flush Syringe IV 11/28/24 09:35 NEEDED PRN Maintain IV Site Discontinued Medications Generic Name Dose Route Start Last Admin Trade Name Freq PRN Reason Stop Dose Admin Aspirin 325 mg 10/29/24 10:21 10/29/24 10:30 Aspirin 325mg Tablet PO 10/29/24 10:22 325 mg ONCE ONE Administration Clopidogrel Bisulfate 300 mg 10/29/24 10:21 10/29/24 10:29 Clopidogrel 300mg Tablet PO 10/29/24 10:22 300 mg ONCE ONE Administration Iopamidol 80 ml 10/29/24 09:46 10/29/24 09:47 Iopamidol-370 (76%);100ml Bottle IV 10/29/24 09:47 80 ml ONCE ONE Administration Sodium Chloride 40 ml 10/29/24 09:46 10/29/24 09:47 0.9 % Sodium Chloride 50 Ml Vial IV 10/29/24 09:47 40 ml ONCE ONE Administration Sodium Chloride 10 ml 10/29/24 09:46 10/29/24 09:47 Sodium Chloride 0.9% 10ml Syr (Rad Only) IV 10/29/24 09:47 10 ml ONCE ONE Administration ORDERS Category Date Time Status CT angio head Stat Cat Scan 10/29/24 09:[address] angio neck Stat Cat Scan 10/29/24 09:[address] head/brain wo con Stat Cat Scan 10/29/24 09:36 Taken Activated Partial Thrombo Time Stat Lab 10/29/24 09:30 Completed Complete Blood Count Auto Diff Stat Lab 10/29/24 09:30 Completed Comprehensive Metabolic Panel Stat Lab 10/29/24 09:30 Completed Drug Screen,Urine Stat Lab 10/29/24 09:36 Ordered Ethyl Alcohol Stat Lab 10/29/24 09:30 Completed HIV Combo Stat Lab 10/29/24 09:30 Received Hepatitis C Ab Qual. W/ RFX Stat Lab 10/29/24 09:30 Received Lipid Panel Stat Lab 10/29/24 09:30 Completed Prothrombin Time INR Stat Lab 10/29/24 09:30 Completed Troponin I Q3H Lab 10/29/24 12:45 Ordered Troponin I Q3H Lab 10/29/24 15:45 Ordered Troponin I Stat Lab 10/29/24 09:30 Completed Urinalysis and Microscopic Stat Lab 10/29/24 09:36 Ordered Medical Decision Narrative: In summary this is a 74-year-old female patient who is presenting to the emergency department today for concern of strokelike symptoms marked by left- sided motor deficits and sensory changes. Patient's comorbidities include hypertension, hyperlipidemia, prior stroke, type 2 diabetes. She is on a daily aspirin's and is not currently taking Plavix or anticoagulants. On initial evaluation of the patient they were resting comfortably in no acute distress and nontoxic in appearance. They are hemodynamically stable, saturating well room air. On physical examination she does have left-sided facial weakness, which she states is unchanged from prior. No dysarthria. She has 5 out of 5 strength in her right upper extremity and right lower extremity without drift. She is able to resist gravity with her left upper extremity and left lower extremity, however there is drift in the extremities do fall to the bed. She has weakness with extension of the fingers of the left hand which she states is a worsening deficit from her baseline. Speech and language appear to be unaffected. She does have extinction on her left upper extremity and left lower extremity. Differential diagnosis includes large vascular occlusion, ischemic stroke, hemorrhagic stroke, among others. After my initial evaluation of the patient we did designate her as a stroke alert. She was emergently taken to scan for a CTA of the head and neck as well as a CT head without contrast. Through this a I we were notified that there was no evidence of large vascular occlusion. Labs were personally interpreted by me and demonstrate no actionable normalities. There is no significant electrolyte derangement. No evidence of acute kidney injury. Urine is pending. I have had an interactive discussion with the neurology team out at [facility] in [place]. After further discussion with him we have elected to load the patient with 300 mg of Plavix and [address] Loomis at [facility] has agreed to accept the patient for transfer for MRI and further workup of her stroke, as our MRI machine is down today. Patient was transferred to [place] in stable condition. Critical Care Critical Care Time Critical Care Time: Yes Attestation: On 10/29/24, the high probability of a clinically significant, sudden or life threatening deterioration of the following system(s) required my full and direct attention, intervention and personal management. The time I documented below is in addition to time spent performing reported procedures but includes the following listed in this critical care notation. Total Time Total Critical Care Time: 35
[2024-10-29] MEDS: 0.9 % SODIUM CHLORIDE 50 ML VIAL 40 ML IV (09:47)
[2024-10-29] MEDS: SODIUM CHLORIDE 0.9% 10ML SYR (RAD ONLY) 10 ML IV (09:47)
[2024-10-29] MEDS: IOPAMIDOL-370 (76%);100ML BOTTLE 80 ML IV (09:47)
--- NOTE | 2024-10-29 09:48 | PC.NURSE ---
patient gone to CT
--- NOTE | 2024-10-29 09:50 | PC.NURSE ---
patient back in room at this time.
[2024-10-29 09:58] LABS: Hematocrit 42.7 % (37.0-47.0); Hemoglobin 14.4 g/dL (12.2-16.2); Immature Granulocytes % 0.4 %; Mean Corpuscular HGB Conc 33.7 g/dL (31.8-35.4); Mean Corpuscular Hemoglobin 29.1 pg (27.0-31.2); Mean Corpuscular Volume 86.4 fl (81-99); Nucleated Red Blood Cells % 0 %; Platelet Count 325 K/mm3 (142-424); Red Blood Count 4.94 M/mm3 (4.20-5.40); Red Cell Distribution Width-SD 45.0 fL; White Blood Count 10.7 K/mm3 (4.8-10.8)
[2024-10-29 10:00] VITALS: BP 153/65; PULSE 71; RESP 17; O2SAT 100
[2024-10-29 10:05] LABS: Albumin Level 4.9 g/dl (3.5-5.0); Chloride 106 mmol/L (98-107); Potassium 4.3 mmoL/L (3.5-5.1); Sodium 140 mmol/L (136-145)
[2024-10-29 10:06] LABS: Activated Partial Thrombo Time 24.5 seconds (22.8-30.6); INR 1.01 (0.9-1.1); Prothrombin Time 11.2 seconds (10.1-12.5)
[2024-10-29 10:08] LABS: Alanine Aminotransferase 25 U/L (12-78); Albumin/Globulin Ratio 1.4 (1.1-1.8); Alkaline Phosphatase 122 U/L (38-126); Anion Gap 14.3 mEq/L (5-15); Aspartate Amino Transferase 34 U/L (14-36); Bilirubin,Total 1.1 mg/dl (0.2-1.3); Blood Urea Nitrogen 21 mg/dl (7-17); Calcium 9.7 mg/dl (8.4-10.2); Carbon Dioxide 24 mmol/L (22.0-30.0); Cholesterol 169 mg/dl (140-200); Creatinine Clearance Estimated 49 mL/min (50-200); Creatinine,Serum 0.60 mg/dl (0.52-1.04); Estimated Glomerular Filt Rate 98 ml/min (>60); GFR (African American) 119 ML/MIN (>60); Globulin 3.5 g/dL (1.3-3.2); Glucose 98 mg/dl (74-100); HDL Cholesterol 53 mg/dl (40-60); Total Protein,Serum 8.4 g/dl (6.3-8.2); Triglycerides 268 mg/dl (30-150)
--- NOTE | 2024-10-29 10:11 | PC.NURSE ---
calling Aiyana at this time.
[2024-10-29 10:26] LABS: Troponin I < 0.01 ng/ml (0.00-0.034)
[2024-10-29 10:30] VITALS: BP 161/70; PULSE 75; RESP 14; O2SAT 99
[2024-10-29] MEDS: ASPIRIN 325MG TABLET 325 MG PO (10:30)
--- NOTE | 2024-10-29 10:40 | PC.NURSE ---
Attempted to call report to [facility], per JASKARAN Muñoz they are finishing up rounds at this time and will call back to receive report.
[2024-10-29 10:59] LABS: Hepatitis C Ab Qual. W/ RFX NEGATIVE (Negative)
[2024-10-29 11:34] VITALS: BP 157/65; PULSE 81; RESP 18; TEMP 37.1; O2SAT 98
--- NOTE | 2024-10-29 11:35 | PC.NURSE ---
Called EMS to make the aware of this transfer.
== END 2024-10-29 12:53 | disposition other institution (70) ==
PROVIDERS: Emergency Provider Student in an Organized Health Care Education/Training Program; PCP Family Medicine
DX: I69.354 Hemiplegia and hemiparesis following cerebral infarction affecting left non-dominant side (principal); I10 Essential (primary) hypertension; E78.5 Hyperlipidemia, unspecified; E11.9 Type 2 diabetes mellitus without complications
CPT/HCPCS: 70450; 70496; 70498; 80053; 80061; 80320; 84484; 85025; 85610; 85730; 86803; 87389; 93005; 99285; Q9967